=== PATIENT | female | born 1945 | race Caucasian/White ===

== ENCOUNTER 2017-02-03 13:44 | Observation (INO) ==
[2017-02-03] MEDS ORDERED: *HR* HYDROcodone/Acet 5/325 mg TABLET PO ONE (14:22)
--- NOTE | 2017-02-03 14:25 | Emergency Department Note ---
Disposition Clinical Impression: Inability to ambulate due to knee Humeral surgical neck fracture Qualifiers: Encounter type: initial encounter Fracture type: closed Fracture morphology: unspecified fracture morphology Fracture alignment: nondisplaced Laterality: right Qualified Code(s): S42.214A - Unspecified nondisplaced fracture of surgical neck of right humerus, initial encounter for closed fracture Disposition: Admitted As Inpatient Condition: Fair Referrals: Lala Hernandez MD [Primary Care Provider] - Forms: ED Satisfaction Letter Time of Disposition: 15:48 Fall HPI - General Chief Complaint: ED Fall Stated Complaint: R shoulder / Knee pain fall Time Seen by Provider: 02/03/17 14:07 Source: patient Mode of arrival: wheelchair Limitations: no limitations Nursing Notes Reviewed: Yes Vital Signs Reviewed: Yes - History of Present Illness HPI Narrative: 71-year-old female presents for evaluation of right shoulder and right knee pain status post fall just prior to arrival. The patient states that she was in her yard pulling weeds, when she stooped over to pull a small sapling out of the ground. She states "I had to pull really hard and when I did, I slipped backwards and fell". She denies any pain or injuries anywhere else. She complains of pain is well localized to the medial aspect of the right knee. Pain is made worse and with range of motion and weightbearing, in fact, the patient states she is unable to bear weight on her right lower extremity due to the knee pain. She denies hitting her head or any loss of consciousness. She denies any nausea, vomiting, abdominal pain, paresthesias, or weakness of the extremities. She denies any prodromal symptoms to this chest pain, palpitations , lightheadedness, dizziness, or visual disturbances prior to her fall. She describes this incident as a mechanical fall in nature. 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 Denies: headache, neck pain , numbness, weakness, chest pain, shortness of breath, abdominal pain, lightheaded, vertigo, confusion - Related Data Allergies Allergy/AdvReac Type Severity Reaction Status Date / Time Sulfa (Sulfonamide Allergy Hives Verified 02/03/17 14:01 Antibiotics) All systems ED: reviewed and negative except as stated. Constitutional: Denies: fever, chills, weakness, weight change Eyes: Denies: eye pain, eye discharge, vision change ENT ED: Denies: ear pain, throat pain, dental pain, hearing loss, epistaxis, congestion, dysphagia Cardiovascular: Denies: chest pain, palpitations, dyspnea on exertion, edema, syncope Respiratory: Denies: cough, dyspnea, wheezes, hemoptysis, stridor Gastrointestinal: Denies: abdominal pain, nausea, vomiting, diarrhea, constipation, hematemesis, melena, hematochezia Genitourinary: Denies: dysuria, frequency, hematuria, discharge Musculoskeletal: Reports: as per HPI, arthralgia (Right knee, right shoulder pain). Denies: back pain, neck pain, myalgia Integumentary: Denies: rash, abrasion, lesions Neurological: Denies: headache, weakness, numbness, paresthesias, confusion, abnormal gait, vertigo Psychiatric: Denies: anxiety, depression, suicidal thoughts, homicidal thoughts , auditory hallucinations, visual hallucinations Endocrine: Denies: fatigue Hematological/Lymphatic: Denies: easy bleeding, easy bruising Allergic/Immunologic: Denies: facial swelling, urticaria Fall PMH - Past Medical History Medical history: Reports: CHF, diabetes, hyperlipidemia, hypertension, myocardial infarction, renal disease Psychiatric history: Reports: no psych history 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 Absent: nystagmus - ENT ENT exam: mucous membranes moist - Neck Neck exam: Present: normal inspection, full ROM, trachea midline. Absent: tenderness - Chest Chest inspection: Present: normal inspection, symmetric chest wall rise - Respiratory Respiratory exam: Present: normal lung sounds bilaterally. Absent: respiratory distress, wheezes, stridor, accessory muscle use, prolonged expiratory phase - Cardiovascular Cardiovascular exam: Present: regular rate, normal rhythm, normal heart sounds - Abdominal Exam Abdominal exam: Present: soft, Non-Tender, normal bowel sounds. Absent: tenderness, distention, guarding, rebound, rigidity, trauma - Expanded Upper Extremity Exam Shoulder exam: Present: tenderness (Tenderness to palpation diffusely of the right shoulder), deformity (Right shoulder seems to be low-lying compared to the left). Absent: full ROM (Range of motion limited by pain, right shoulder), swelling, abrasion, laceration, ecchymosis, erythema, tenderness over AC joint Arm exam: Present: normal inspection, full ROM Elbow exam: Present: normal inspection, full ROM Forearm/Wrist exam: Present: normal inspection, full ROM Hand exam: Present: normal inspection, full ROM Neuromotor exam: Normal: wrist extension, thumb opposition, fingers 2-5 abduction Neurosensory exam: Normal: radial nerve, ulnar nerve, 2-point discrimination Hand tendon exam: Normal: flexor digitorum profundus (location), extensor tendon (location) Vascular exam: Normal: capillary refill, radial pulse, ulnar pulse - Expanded Lower Extremity Exam Hip/Pelvis exam: Present: normal inspection, full ROM, pelvis stable Upper leg exam: Present: normal inspection, full ROM Knee exam: Present: tenderness (Right knee tender to palpation, most notably over the medial aspect of the right knee), swelling (Moderate degree of swelling noted, medial aspect of right knee), ecchymosis (Slight degree of ecchymosis noted, medial aspect of right knee.), pain with valgus, pain with varus, knee extension intact. Absent: full ROM (Range of motion limited by pain , right knee), abrasion, laceration, deformity, crepitus, dislocation, erythema , effusion, anterior drawer sign, posterior draw sign, laxity with valgus, laxity with varus Lower leg exam: Present: normal inspection, full ROM Ankle exam: Present: normal inspection, full ROM Foot/toe exam: Present: normal inspection, full ROM Neurovascular/Tendon exam: Present: normal capillary refill, normal 2-point discrimination. Absent: pulse deficit, motor deficit, sensory deficit, tendon deficit, extremity cold to touch Gait: not tested/not observed - Back Exam Back exam: Present: normal inspection, full ROM. Absent: tenderness, vertebral tenderness - Neurological Exam Neurological exam: Present: alert, oriented X3 - Psychiatric Psychiatric exam: Present: normal affect, normal mood - Skin Skin exam: Present: warm, dry, intact, normal color Course Course Narrative: 1535: I spoke with Dr. Nye, orthopedist animal nutrition consultant. Dr. Nye recommends application of a sling and having the patient follow-up in the office as an outpatient tomorrow. I have discussed with Dr. Nye the fact the patient is unable to bear weight on her right lower extremity due to the knee pain mentioned previously. Despite having negative radiographic imaging, the patient is still unable to bear weight on the right lower extremity. She would be unable to limit her weightbearing by using a walker at home either. I discussed this with Dr. Nye and we have came to the conclusion to attempt to admit the patient to the hospitalist for further evaluation of her right humeral neck fracture as well as inability to ambulate and apparently. 1540: I have discussed this plan with Dr. Soto. Dr. Soto has had a [id number] evaluation with patient and agrees with this plan. I discussed this plan with patient and she verbalizes agreement and understanding as well. I have spoken with Dr. Figueroa of the hospitalist service, who has accepted the patient for admission to her service. Vital Signs Temperature 98 F 02/03/17 14:01 Pulse Rate 59 02/03/17 14:01 Respiratory Rate 20 02/03/17 14:01 Blood Pressure 114/67 02/03/17 14:01 O2 Sat by Pulse Oximetry 99 02/03/17 14:01 Temperature 98 F 02/03/17 14:01 Pulse Rate 59 02/03/17 14:01 Respiratory Rate 20 02/03/17 14:01 Blood Pressure 114/67 02/03/17 14:01 O2 Sat by Pulse Oximetry 99 02/03/17 14:01 Oxygen Delivery Oxygen Delivery Room Air Fall - Medical Records Medical records reviewed: Yes I reviewed the patient's medical records. - Radiology Data Radiology results reviewed: Yes I reviewed the patient's radiology results. Humerus X-Ray 02/03/17 14:22 IMPRESSION: 1. Acute nondisplaced proximal right humeral fracture likely through the surgical neck. This is otherwise not well-visualized due to underlying osteopenia. 2. Deformities of the right lateral 5th through 7th ribs likely representing age-indeterminate rib fractures. Recommend correlation to any acute focal pain in this region. D/ / 02/03/2017 15:15:29 Sravanthi Reeves MD / jairo Interpreting Provider: Sravanthi Reeves MD Knee X-Ray 02/03/17 14:22 IMPRESSION: Normal alignment with no acute fracture. D/ / 02/03/2017 15:11:48 David David MD / elizabeth Interpreting Provider: David David MD Shoulder X-Ray 02/03/17 14:22 IMPRESSION: 1. Acute nondisplaced proximal right humeral fracture likely through the surgical neck. This is otherwise not well-visualized due to underlying osteopenia. 2. Deformities of the right lateral 5th through 7th ribs likely representing age-indeterminate rib fractures. Recommend correlation to any acute focal pain in this region. D/ / 02/03/2017 15:15:29 Sravanthi Reeves MD / jairo Interpreting Provider: Sravanthi Reeves MD Attestation Statement - Attestation Attestation: I examined this patient and my medical decision-making was reviewed with the BOX TENDER/PA/Advanced Practice Nurse/Resident Physician. I agree with the documented findings, disposition and treatment plan as described except to the extent set forth below. [id number] time provided Patient sustained a fall. Humerus fracture. Appears comfortable on exam. Having difficulty bearing weight and ambulating. There is a fall risk. Will admit.
[2017-02-03 16:55] LABS: Basophils % 0.5 %; Eosinophils # 0.1 K/mcL (0.0-0.6); Eosinophils % 1.2 %; Hematocrit 38.7 % (35.3-44.9); Hemoglobin 12.2 g/dL (11.5-15.4); Immature Granulocytes % 0.7 % (0-4); Lymphocytes # 1.3 K/mcL (0.6-4.6); Lymphocytes % 16.3 %; Mean Corpuscular HGB Conc 31.5 g/dL (31.6-35.5); Mean Corpuscular Hemoglobin 29.5 pg (28.0-33.3); Mean Corpuscular Volume 93.7 fL (83.0-100.0); Mean Platelet Volume 12.4 fL (9.4-12.4); Monocytes # 0.5 K/mcL (0.0-1.3); Neutrophils # 5.8 K/mcL (1.6-8.9); Platelet Count 151 K/mcL (140-400); Red Blood Count 4.13 M/mcL (3.82-4.97); Red Cell Distribution Width 16.5 % (11.5-14.5); Segmented Neutrophils % 75.3 %
[2017-02-03 17:02] LABS: INR 2.7; Prothrombin Time 29.5 Seconds (9.4-12.1)
[2017-02-03 17:04] LABS: Activated Partial Thrombo Time 36.3 Seconds (26.0-36.0)
[2017-02-03 17:07] LABS: Calcium 9.1 mg/dL (8.6-10.8); Potassium 4.5 mEq/L (3.5-4.5)
[2017-02-03] MEDS ORDERED: Acetaminophen 325 MG TABLET PO PRN (18:51)
[2017-02-03] MEDS ORDERED: Ondansetron ODT 4 MG TAB.RAPDIS SL PRN (18:51)
[2017-02-03] MEDS ORDERED: Naloxone 0.4 MG/ML INJ IVP PRN (18:51)
[2017-02-03] MEDS ORDERED: Furosemide 40 MG TABLET PO SCH (19:00)
[2017-02-03] MEDS ORDERED: Lisinopril 20 MG TABLET PO SCH (21:00)
--- NOTE | 2017-02-03 21:11 | Internal Med History&Physical ---
<Nery Baltazar M - Last Filed: 02/03/17 23:56> Date of Encounter: 02/03/17 Time of Encounter: 21:00 Assessment and Plan (1) Inability to ambulate due to knee Current visit: Yes Status: Acute Patient is s/p fall and reports hearing/feeling a "pop" in her right knee. Knee xray shows normal alignment with no acute fracture. Medial aspect of right knee is tender to palpation and swollen, concern for possible ligament tear. CT without contrast of right knee ordered, which showed hemarthrosis. Consult to orthopedic surgery. (2) Humeral surgical neck fracture Current visit: Yes Status: Acute Patient s/p mechanical fall. Right shoulder xray showed acute non-displaced right humeral fracture likely through the surgical neck. Sling and elevation. Orthopedic surgery consulted. Qualifiers: Encounter type: initial encounter Fracture type: closed Fracture morphology: unspecified fracture morphology Fracture alignment: nondisplaced Laterality: right Qualified Code(s): S42.214A - Unspecified nondisplaced fracture of surgical neck of right humerus, initial encounter for closed fracture (3) Anticoagulated on Coumadin Current visit: Yes Status: Acute Patient on coumadin for history of afib, INR therapeutic at 2.7. Will hold pending results of CT of knee and ortho consult in case of possible surgery. (4) Acute kidney injury superimposed on chronic kidney disease Current visit: Yes Status: Acute Patient reports history of kidney problems, but has not seen a surgical services manager in several years and has no recent labs for base line comparison. Creatinine today is 1.85, unclear if this is consistent with her CKD or acute on chronic. Will hold lisinopril and lasix. Check chemistry daily. (5) Type 2 diabetes mellitus Current visit: Yes Status: Acute Patient reports diabetes is diet controlled. Blood sugar with labs today was 88. QID accuchecks not warranted. Will check glucose with morning chemistry and if elevated, can initiate QID accuchecks. Qualifiers: Diabetes mellitus complication status: without complication Diabetes mellitus snf insulin use: without snf use Qualified Code(s): E11.9 - Type 2 diabetes mellitus without complications (6) DVT prophylaxis Current visit: Yes Status: Acute Patient on coumadin for history of afib and INR is therapeutic. Holding coumadin in case of possible surgery, will re-start if surgery not indicated. Internal Medicine - H&P: HPI Chief complaint: fall, right knee pain, right shoulder pain Admitted From: Emergency Dept Plans for Post Hospital Care: Home History of present illness: Ms. Rodríguez is a 71 year old female with hypertension, hyperlipidemia, coronary artery disease, kidney disease, atrial fibrillation on Coumadin, CHF, pacemaker AICD, presented to the emergency department today after suffering a fall. Patient reports that she was in her yard pulling weeds, when she pulled too hard on one and lost her balance. She reports she heard/felt a "pop" in her right knee and landed on her right side. She has had pain in her right arm and right knee, and is unable to bear weight. Pain is worse with movement and palpation and improved with pain medicine given in ED. She denies hitting her head, having any preceding lightheadedness or dizziness. She denies any chest pain, palpitations, shortness of breath, recent fevers, chills, dysuria. Evaluation in the ED included Xray of the right shoulder which showed an acute non-displaced right humeral fracture. Xray of the knee showed normal alignment with no acute fracture. Labs revealed therapeutic INR of 2.7. Creatinine elevated at 1.85, patient reports history of CKD, but has not seen a surgical services manager recently and with unknown recent baseline. On exam, patient alert and oriented, in no acute distress. Heart has regular rate and rhythm, lungs clear bilaterally to auscultation. Right arm tender to palpation over humeral head. Right knee with medial swelling, tenderness to medial aspect. Past Med Surg Social Fam HX - Past Medical History Medical history: atrial fibrillation, CHF, diabetes (diet controlled), GERD, hyperlipidemia, hypertension, myocardial infarction, renal disease Psychiatric history: no psych history - Past Surgical History Surgical History: cholecystectomy, pacemaker/AICD - Social History Smoking Status: Former smoker Smokeless Tobacco Status: No Alcohol use: none Drug use: none - Family History Mother Living Status: Age at : 53 Hx Family Endocrine Disorder: Yes (diabetes) Father Living Status: Age at : 58 Cause of : ME Hx Family Cardiac Disorders: Yes Internal Medicine - H&P: Meds Acetaminophen [Tylenol] 500 mg PO Q6H PRN 02/03/17 [History] Allopurinol [Zyloprim 100 MG] 100 mg PO BID 02/03/17 [History] Amiodarone [Cordarone] 400 mg PO QAM 02/03/17 [History] Biotin 1 mg PO DAILY 02/03/17 [History] Calcitriol [Rocaltrol] 0.25 mcg PO DAILY 02/03/17 [History] Cholecalciferol (D-3) [Vitamin D] 3,000 unit PO DAILY 02/03/17 [History] Cyanocobalamin (Vitamin B-12) [Vitamin B-12] 250 mcg PO DAILY 02/03/17 [History] Enalapril Maleate [Vasotec] 20 mg PO BID 02/03/17 [History] Furosemide [Lasix] 40 mg PO Q48H 02/03/17 [History] Metoprolol [Lopressor] 25 mg PO BID 02/03/17 [History] Omeprazole [PriLOSEC] 20 mg PO BID 02/03/17 [History] Oxycodone HCl/Acetaminophen [Percocet 5-325 mg Tablet] 1 each PO BID PRN [History] Potassium Chloride [Klor-Con 10] 10 meq PO DAILY 02/03/17 [History] Warfarin [Coumadin] 1 mg PO Q48H 02/03/17 [History] Warfarin [Coumadin] 2 mg PO Q48H 02/03/17 [History] Allergies Sulfa (Sulfonamide Antibiotics) Allergy (Verified 02/03/17 14:01) Hives All Systems PM: A 10-system review of systems was performed and is negative for pertinent findings except as documented above in the HPI. - Constitutional Constitutional: no chills, no fever(s), no night sweats - EENT Eyes: no change in vision, no discharge, no pain, no photophobia Ears: no ear discharge, no ear pain, no tinnitus Nose, mouth and throat: no dysphagia, no nasal discharge, no neck pain, no sore throat - Cardiovascular Cardiovascular ROS IM: no chest pain, no diaphoresis, no dyspnea, no lightheadedness, no palpitations, no syncope - Respiratory Respiratory: no cough, no dyspnea, no wheezing, no excessive phlegm production - Gastrointestinal Gastrointestinal: no abdominal pain, no diarrhea, no hematemesis, no hematochezia, no melena, no nausea, no vomiting - Genitourinary Genitourinary: no change in urinary stream, no dysuria, no flank pain, no hematuria - Musculoskeletal Musculoskeletal ROS IM: as per HPI, no numbness, no tingling - Integumentary Integumentary IM: no rash, no unusual bruising - Neurological Neurological ROS: no confusion, no convulsions, no focal weakness, no numbness, no tingling, no tremor(s) - Hematologic/Lymphatic Hematologic/Lymphatic: no easy bruising - Constitutional Vitals: Temp Pulse Resp BP Pulse Ox 98.2 F 60 18 165/77 99 02/03/17 18:37 02/03/17 18:37 02/03/17 18:37 02/03/17 18:37 02/03/17 18:37 General appearance: Present: A&O X 3, pleasant, no acute distress - Head Head exam: Present: atraumatic, normocephalic - Eye Eye exam: Present: PERRL, conjuntiva pink, sclera anicteric Pupils: Present: PERRL - Neck Neck exam general surgery: Present: supple, trachea midline. Absent: lymphadenopathy - Respiratory Respiratory exam: Present: CTAB. Absent: accessory muscle use, rales, rhonchi, wheezes - Cardiovascular Cardiovascular exam: Present: RRR, +S1, +S2. Absent: diastolic murmur, gallop, rubs, systolic murmur - GI/Abdominal GI/Abdominal exam: Present: normal bowel sounds, soft, no peritoneal signs. Absent: distended, tenderness - Extremities Exam Extremities exam: Present: warm, radial pulses palpable and symetrical. Absent : calf tenderness, cyanotic, pedal edema - Expanded Upper Extremities Exam Upper Arm exam: Present: swelling (right), tenderness (right) - Expanded Lower Extremities Exam Knee exam: Present: swelling (medial aspect of right knee), tenderness (medial aspect of right knee) - Neurological Exam Neurological exam: Present: CN II-XII intact, oriented X3, no focal deficits. Absent: facial droop, speech deficit - Skin Skin exam: Present: dry, intact Internal Med - H&P Results - Labs CBC & Chem 7: 02/03/17 16:46 02/03/17 16:46 Labs: All Lab Results (24 Hours) 02/03/17 02/03/17 02/03/17 Range/Units 16:46 16:46 16:46 WBC 7.7 (4.3-11.1) K/mcL RBC 4.13 (3.82-4.97) M/mcL Hgb 12.2 (11.5-15.4) g/dL Hct 38.7 (35.3-44.9) % MCV 93.7 (83.0-100.0) fL MCH 29.5 (28.0-33.3) pg MCHC 31.5 L (31.6-35.5) g/dL RDW 16.5 H (11.5-14.5) % Plt Count 151 (140-400) K/mcL MPV 12.4 (9.4-12.4) fL Immature Gran % 0.7 (0-4) % Seg Neutrophils % 75.3 % Lymphocytes % 16.3 % Monocytes % 6.0 % Eosinophils % 1.2 % Basophils % 0.5 % Neutrophils # 5.8 (1.6-8.9) K/mcL Lymphocytes # 1.3 (0.6-4.6) K/mcL Monocytes # 0.5 (0.0-1.3) K/mcL Eosinophils # 0.1 (0.0-0.6) K/mcL Basophils # 0.0 (0.0-0.2) K/mcL PT 29.5 H (9.4-12.1) Seconds INR 2.7 APTT 36.3 H (26.0-36.0) Seconds Sodium 139 (136-145) mEq/L Potassium 4.5 (3.5-4.5) mEq/L Chloride 109 (98-109) mEq/L Carbon Dioxide 22 (19-29) mEq/L BUN 36 H (7-20) mg/dL Creatinine 1.85 H (0.57-1.11) mg/dL Est GFR ( Amer) 33 L (> 60) Est GFR (Non-Af Amer) 27 L (> 60) BUN/Creatinine Ratio 19 (6-26) Glucose 88 (70-99) mg/dL Calculated Osmolality 296 (280-300) Calcium 9.1 (8.6-10.8) mg/dL - Diagnostic Studies Other Images Additional comments: Humerus X-Ray 02/03/17 14:22 IMPRESSION: 1. Acute nondisplaced proximal right humeral fracture likely through the surgical neck. This is otherwise not well-visualized due to underlying osteopenia. 2. Deformities of the right lateral 5th through 7th ribs likely representing age-indeterminate rib fractures. Recommend correlation to any acute focal pain in this region. D/ / 02/03/2017 15:15:29 Sravanthi Reeves MD / earnold Interpreting Provider: Sravanthi Reeves MD Knee X-Ray 02/03/17 14:22 IMPRESSION: Normal alignment with no acute fracture. D/ / 02/03/2017 15:11:48 David David MD / bcarter Interpreting Provider: David David MD Shoulder X-Ray 02/03/17 14:22 IMPRESSION: 1. Acute nondisplaced proximal right humeral fracture likely through the surgical neck. This is otherwise not well-visualized due to underlying osteopenia. 2. Deformities of the right lateral 5th through 7th ribs likely representing age-indeterminate rib fractures. Recommend correlation to any acute focal pain in this region. D/ / 02/03/2017 15:15:29 Sravanthi Reeves MD / earnoanna Interpreting Provider: Sravanthi Reeves MD <Alpesh Robison - Last Filed: 02/04/17 00:22> Date of Encounter: 02/04/17 - EENT Eyes: no blurry vision, no change in vision Ears: no tinnitus Nose, mouth and throat: no nasal discharge, no sinus pressure, no sore throat - Cardiovascular Cardiovascular ROS IM: no chest pain, no dyspnea, no dyspnea on exertion, no syncope - Respiratory Respiratory: no cough, no wheezing, no chest congestion - Gastrointestinal Gastrointestinal: no diarrhea, no nausea, no vomiting - Musculoskeletal Musculoskeletal ROS IM: arthralgias - Neurological Neurological ROS: no dizziness - Psychiatric Psychiatric: no anxiety, no depression - Endocrine Endocrine IM: no cold intolerance, no heat intolerance - Allergic/Immunologic Allergic/Immunologic: no wheezing, no GI upset with certain foods - Constitutional Vitals: Temp Pulse Resp BP Pulse Ox 97.9 F 60 16 155/79 97 02/03/17 23:15 02/03/17 23:15 02/03/17 23:15 02/03/17 23:15 02/03/17 23:15 General appearance: Present: A&O X 3, pleasant, no acute distress - Head Head exam: Present: atraumatic, normal inspection - Eye Eye exam: Present: EOMI, PERRL. Absent: scleral icterus - ENT ENT exam: Present: mucous membranes moist, normal exam - Neck Neck exam general surgery: Present: full ROM, supple. Absent: tenderness - Respiratory Respiratory exam: Present: CTAB. Absent: rales, wheezes - Cardiovascular Cardiovascular exam: Present: RRR, +S1, +S2 - GI/Abdominal GI/Abdominal exam: Present: soft, no peritoneal signs. Absent: tenderness - Extremities Exam Additional comments: right arm in sling; tender/swollen (slightly) right knee - Neurological Exam Neurological exam: Present: alert, CN II-XII intact, oriented X3, no focal deficits - Psychiatric Psychiatric exam: Present: normal affect, normal mood Internal Med - H&P Results - Labs CBC & Chem 7: 02/03/17 16:46 02/03/17 16:46 Labs: Short CBC 02/03/17 Range/Units 16:46 WBC 7.7 (4.3-11.1) K/mcL Hgb 12.2 (11.5-15.4) g/dL Hct 38.7 (35.3-44.9) % Plt Count 151 (140-400) K/mcL Neutrophils # 5.8 (1.6-8.9) K/mcL BMP 02/03/17 16:46 Sodium 139 Potassium 4.5 Chloride 109 Carbon Dioxide 22 BUN 36 H Creatinine 1.85 H Glucose 88 Calcium 9.1 - Impressions ITS Impressions Knee CT 02/03/17 20:53 IMPRESSION: Acute traumatic mildly depressed intra-articular fracture involving medial femoral condyle. Associated large lipohemarthrosis. Minimal degenerative changes to the medial and patellofemoral compartments. Diffuse bone demineralization. Mild subcutaneous edema predominantly laterally. The findings were sent to the Radiology Results Communication Center at 10:54 pm on 02/03/2017 to be communicated to a licensed caregiver. D/ /03/2017 22:58:34 Sung Perera MD / [email or web address] Interpreting Provider: Sung Perera MD - Diagnostic Studies Other Images Status: image reviewed by me (humeral fracture noted) - Attending Attestation I discussed the patient [place], PMH, ROS, lab data, and exam findings with Nery Baltazar CNP. I then saw and examined patient independently as well. Patient reiterated to me that she fell as she was pulling weeds. She denies any syncopal symptoms or history of syncope. She sustained injury to her shoulder and knee. Imaging in ER confirmed humeral neck fracture and knee xray was negative. After my discussion with Nery, she and I agreed we needed to further image her knee given the degree of pain she was having. She is unable to undergo MRI due to pacemaker, so we proceeded with CT imaging (no contrast due to ADA/CKD). CT confirmed acute fracture of the medial femoral condyle as well as hemarthrosis. We are holding her Coumadin for now and will await further orthopedic guidance as noted by Nery. Other than my comments and exam findings noted above, I agree with Nery's assessment and plan.
[2017-02-03] MEDS: *HR* HYDROcodone/Acet 5/325 mg TABLET PO PRN (21:40)
[2017-02-04] MEDS: *HR* HYDROcodone/Acet 5/325 mg TABLET PO PRN ×2 (03:00→08:39)
[2017-02-04 04:45] LABS: Basophils % 0.4 %; Eosinophils % 0.4 %; Hematocrit 33.6 % (35.3-44.9); Hemoglobin 10.8 g/dL (11.5-15.4); Immature Granulocytes % 0.3 % (0-4); Lymphocytes % 13.4 %; Mean Corpuscular HGB Conc 32.1 g/dL (31.6-35.5); Mean Corpuscular Hemoglobin 29.8 pg (28.0-33.3); Mean Corpuscular Volume 92.6 fL (83.0-100.0); Mean Platelet Volume 11.9 fL (9.4-12.4); Monocytes # 0.5 K/mcL (0.0-1.3); Monocytes % 7.4 %; Neutrophils # 5.6 K/mcL (1.6-8.9); Platelet Count 143 K/mcL (140-400); Red Blood Count 3.63 M/mcL (3.82-4.97); Red Cell Distribution Width 16.1 % (11.5-14.5); Segmented Neutrophils % 78.1 %
[2017-02-04 05:04] LABS: Calcium 8.4 mg/dL (8.6-10.8); Potassium 4.4 mEq/L (3.5-4.5)
[2017-02-04] MEDS: Cyanocobalamin (B-12) 1,000 MCG TABLET PO SCH (08:38)
[2017-02-04] MEDS: Cholecalciferol (D-3) 1,000 UNIT TABLET PO SCH (08:38)
[2017-02-04] MEDS: Biotin [Biotin] 1 MG PO SCH (08:39)
[2017-02-04] MEDS: *HR* Amiodarone 200 MG TABLET PO SCH (08:39)
--- NOTE | 2017-02-04 11:15 | Internal Med Progress Note ---
Date of Encounter: 02/04/17 Time of Encounter: 09:45 - Assessment and plan (1) Humeral surgical neck fracture Current Visit: Yes Status: Acute Assessment and plan: imaging consistent with acute fracture to right proximal humerus through the surgical neck. Ortho is onboard- awaiting recommendations. Holding Coumadin. Distal arm neurovascularly intact and she is able to use her hand without limitations. 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 ITS Impressions Humerus X-Ray 02/03/17 14:22 IMPRESSION: 1. Acute nondisplaced proximal right humeral fracture likely through the surgical neck. This is otherwise not well-visualized due to underlying osteopenia. 2. Deformities of the right lateral 5th through 7th ribs likely representing age-indeterminate rib fractures. Recommend correlation to any acute focal pain in this region. D/ / 02/03/2017 15:15:29 Sravanthi Reeves MD / jairo Interpreting Provider: Sravanthi Reeves MD Shoulder X-Ray 02/03/17 14:22 IMPRESSION: 1. Acute nondisplaced proximal right humeral fracture likely through the surgical neck. This is otherwise not well-visualized due to underlying osteopenia. 2. Deformities of the right lateral 5th through 7th ribs likely representing age-indeterminate rib fractures. Recommend correlation to any acute focal pain in this region. D/ / 02/03/2017 15:15:29 Sravanthi Reeves MD / jairo Interpreting Provider: Sravanthi Reeves MD Qualifiers: Encounter type: initial encounter Fracture type: closed Fracture morphology: unspecified fracture morphology Fracture alignment: nondisplaced Laterality: right Qualified Code(s): S42.214A - Unspecified nondisplaced fracture of surgical neck of right humerus, initial encounter for closed fracture (2) Hemarthrosis involving knee joint Current Visit: Yes Status: Acute Assessment and plan: Imaging consistent with acute fracture to medial femoral condyle. Ortho onboard - awaiting recommendations. Left lower leg neurovascularly intact. ITS Impressions Knee X-Ray 02/03/17 14:22 IMPRESSION: Normal alignment with no acute fracture. D/ / 02/03/2017 15:11:48 David David MD / elizabeth Interpreting Provider: David David MD Knee CT 02/03/17 20:53 IMPRESSION: Acute traumatic mildly depressed intra-articular fracture involving medial femoral condyle. Associated large lipohemarthrosis. Minimal degenerative changes to the medial and patellofemoral compartments. Diffuse bone demineralization. Mild subcutaneous edema predominantly laterally. The findings were sent to the Radiology Results Communication Center at 10:54 pm on 02/03/2017 to be communicated to a licensed caregiver. D/ : / 02/03/2017 22:58:34 Sung Perera MD / [facility] Interpreting Provider: Sung Perera MD Qualifiers: Laterality: left Qualified Code(s): M25.062 - Hemarthrosis, left knee (3) Rib fractures Current Visit: Yes Status: Suspected Assessment and plan: imaging revealing possible fractures to right lateral ribs 5 through 7. Patient denies chest wall pain but currently has distracting injuries- will continue to monitor. She denies shortness of breath. ITS Impressions Humerus X-Ray 02/03/17 14:22/Shoulder X-Ray 02/03/17 14:22 IMPRESSION: 1. Acute nondisplaced proximal right humeral fracture likely through the surgical neck. This is otherwise not well-visualized due to underlying osteopenia. 2. Deformities of the right lateral 5th through 7th ribs likely representing age-indeterminate rib fractures. Recommend correlation to any acute focal pain in this region. D/ / 02/03/2017 15:15:29 Sravanthi Reeves MD / [facility] Interpreting Provider: Sravanthi Reeves MD Qualifiers: Encounter type: initial encounter Rib fracture type: multiple ribs Fracture type: closed Laterality: right Qualified Code(s): S22.41XA - Multiple fractures of ribs, right side, initial encounter for closed fracture (4) Inability to ambulate due to knee Current Visit: Yes Status: Acute Assessment and plan: OT and PT consultations to be placed after Ortho recommendations are rendered. (5) Combined systolic and diastolic heart failure Current Visit: Yes Status: Chronic Assessment and plan: No acute exacerbation. Patient's most recent echocardiogram was from 2013 which revealed an ejection fraction of 10-15% at that time. She is also on furosemide at home. Suspect combined systolic and diastolic heart failure without acute exacerbation. Qualifiers: Heart failure chronicity: chronic Qualified Code(s): I50.42 - Chronic combined systolic (congestive) and diastolic (congestive) heart failure (6) Anticoagulated on Coumadin Current Visit: Yes Status: Chronic Assessment and plan: holding; appreciate Ortho recommendations (7) Acute kidney injury superimposed on chronic kidney disease Current Visit: Yes Status: Acute Assessment and plan: Patient appears as if she may have chronic kidney disease either stage III or possibly even stage IV however I do not have prior lab results to determine chronicity. Renal function improved slightly overnight, we will continue to trend in however follow-up outpatient. (8) Type 2 diabetes mellitus Current Visit: Yes Status: Chronic Assessment and plan: Appears well controlled; will monitor Qualifiers: Diabetes mellitus complication status: without complication Diabetes mellitus jail insulin use: without longitudinal float operator use Qualified Code(s): E11.9 - Type 2 diabetes mellitus without complications (9) DVT prophylaxis Current Visit: Yes Status: Acute Assessment and plan: was therapeutic on coumadin yesterday- holding coumadin 2/2 ortho injuries. cannot tolerate IPC's 2/2 knee injury - Subjective Interval history: Patient seen and examined. On examination, patient sitting upright in bed watching television. She states that her pain is not currently controlled. She is complaining of left knee pain and right upper arm pain. She states she is eating well. - Constitutional Vitals: Temp Pulse Resp BP Pulse Ox 98.2 F 60 16 122/55 95 02/04/17 06:53 02/04/17 06:53 02/04/17 06:53 02/04/17 06:53 02/04/17 06:53 General appearance: Present: mild distress (2/2 pain), A&O X 3, pleasant, answers questions appropriately - Head Head exam: Present: atraumatic, normocephalic - Eye Eye exam: Present: PERRL, conjuntiva pink, sclera anicteric Pupils: Present: PERRL - Neck Neck exam general surgery: Present: supple, trachea midline. Absent: lymphadenopathy - Respiratory Respiratory exam: Present: CTAB. Absent: accessory muscle use, rales, respiratory distress, rhonchi, wheezes - Cardiovascular Cardiovascular exam: Present: RRR, +S1, +S2. Absent: diastolic murmur, gallop, rubs, systolic murmur - GI/Abdominal GI/Abdominal exam: Present: normal bowel sounds, soft, no peritoneal signs. Absent: distended, tenderness - Extremities Exam Extremities exam: Present: warm, radial pulses palpable and symetrical. Absent : calf tenderness, cyanotic, pedal edema - Expanded Upper Extremities Exam Shoulder exam: Present: swelling, tenderness Upper Arm exam: Present: swelling, tenderness Vascular exam: Present: normal capillary refill. Absent: vascular compromise - Expanded Lower Extremities Exam Knee exam: Present: erythema, swelling, tenderness Neuro vascular tendon exam: Present: no vascular compromise Gait: Present: not tested/not observed - Neurological Exam Neurological exam: Present: alert, CN II-XII intact, oriented X3, no focal deficits, strengths equal and symetr throughout. Absent: pronater drift, facial droop, speech deficit - Skin Skin exam: Present: dry, intact, pallor, warm Internal Medicine: Result - Labs CBC & Chem 7: 02/04/17 04:11 02/04/17 04:11 Labs: Short CBC 02/03/17 02/04/17 Range/Units 16:46 04:11 WBC 7.7 7.2 (4.3-11.1) K/mcL Hgb 12.2 10.8 L (11.5-15.4) g/dL Hct 38.7 33.6 L (35.3-44.9) % Plt Count 151 143 (140-400) K/mcL Neutrophils # 5.8 5.6 (1.6-8.9) K/mcL BMP 02/03/17 02/04/17 16:46 04:11 Sodium 139 139 Potassium 4.5 4.4 Chloride 109 109 Carbon Dioxide 22 23 BUN 36 H 35 H Creatinine 1.85 H 1.63 H Glucose 88 125 H Calcium 9.1 8.4 L - ABG Interpretation ABG results: PT/INR, D-dimer PT 29.5 Seconds (9.4-12.1) H 02/03/17 16:46 - Impressions Impressions Knee CT 02/03/17 20:53 IMPRESSION: Acute traumatic mildly depressed intra-articular fracture involving medial femoral condyle. Associated large lipohemarthrosis. Minimal degenerative changes to the medial and patellofemoral compartments. Diffuse bone demineralization. Mild subcutaneous edema predominantly laterally. The findings were sent to the Radiology Results Communication Center at 10:54 pm on 02/03/2017 to be communicated to a licensed caregiver. D/ / 02/03/2017 22:58:34 Sung Perera MD / eriberto Interpreting Provider: Sung Perera MD Consult Discharge Plan - Plan Referrals: Lala Hernandez MD [Primary Care Provider] -
[2017-02-04] MEDS: *HR* Morphine 2 MG/ML SYRINGE IVP PRN ×2 (15:21→19:52)
[2017-02-04] MEDS: *HR* HYDROcodone/Acet 7.5/325 mg TABLET PO PRN ×2 (16:37→22:54)
--- NOTE | 2017-02-04 17:20 | Orthopedic Consult Note ---
Date of Encounter: 02/04/17 Time of Encounter: 17:00 Assessment and Plan (1) Hemarthrosis involving knee joint Current Visit: Yes Status: Acute Discussed case with Dr. Nye and Hospitalist. Discussed case with patient and family. Shoulder is non-operative at this time. Continue in brace and work on wrist/hand ROM. Right knee non-operative at this time. Treat fracture with hinged knee brace and WBAT. Ice and elevation as tolerated. Recommend pain control. Recommend consultation to OT/PT for patient. Discussed patient possibly staying tonight secondary to her anticoagulation status and a hemarthrosis. Follow up with orthopedic provider in 1 week. Also, regarding her bone demineralization and multiple fractures following a fall - strongly recommended to patient and family that she follow up with her PCP to discuss Osteoporosis work up. Patient expresses understanding. Thank you for this consultation. Qualifiers: Laterality: left Qualified Code(s): M25.062 - Hemarthrosis, left knee (2) Humeral surgical neck fracture Current Visit: Yes Status: Acute Qualifiers: Encounter type: initial encounter Fracture type: closed Fracture morphology: unspecified fracture morphology Fracture alignment: nondisplaced Laterality: right Qualified Code(s): S42.214A - Unspecified nondisplaced fracture of surgical neck of right humerus, initial encounter for closed fracture History of Present Illness Chief complaint: right humerus fracture, right knee hemarthrosis HPI: Ms. Rodríguez is a pleasant 71 year old female presents to the hospital with shoulder pain and knee pain. She relates that she was pulling up a sapling tree yesterday and fell onto her right side. She states the pain was bad causing her to come to the hospital for evaluation. Patient relates a complex cardiac history with correction use of Warfarin. Admits difficulty ambulating, right shoulder pain at rest and with motion, and right knee pain. Denies numbness, paresthesia, nausea, headache, shortness of breath. On exam patient resting comfortably in bed in supine position. Two family members present at bedside. She is alert and oriented x 3, conversive and cooperative. Head normocephalic, atraumatic. Right shoulder is tender to palpation - right upper extremity in simple blue sling - otherwise unremarkable. Motion of right elbow and wrist and hand intact. No erythema, ecchymosis, induration, or loss of skin integrity noted. Right knee is edematous , warm and tender to palpation, painful with motion. Skin is tense, but no loss of integrity, warmth, or ecchymosis noted. Patient is neurovascularly intact with regard to all extremities. Imaging reviewed. XR/XR humerus RT IMPRESSION: 1. Acute nondisplaced proximal right humeral fracture likely through the surgical neck. This is otherwise not well-visualized due to underlying osteopenia. 2. Deformities of the right lateral 5th through 7th ribs likely representing age-indeterminate rib fractures. Recommend correlation to any acute focal pain in this region. CT/CT knee RT wo con IMPRESSION: Acute traumatic mildly depressed intra-articular fracture involving medial femoral condyle. Associated large lipohemarthrosis. Minimal degenerative changes to the medial and patellofemoral compartments. Diffuse bone demineralization. Mild subcutaneous edema predominantly laterally. Discussed case with Dr. Nye and Hospitalist. Discussed case with patient and family. Shoulder is non-operative at this time. Continue in brace and work on wrist/hand ROM. Right knee non-operative at this time. Treat fracture with hinged knee brace and WBAT. Ice and elevation as tolerated. Recommend pain control. Recommend consultation to OT/PT for patient. Discussed patient possibly staying tonight secondary to her anticoagulation status and a hemarthrosis. Follow up with orthopedic provider in 1 week. Also, regarding her bone demineralization and multiple fractures following a fall - strongly recommended to patient and family that she follow up with her PCP to discuss Osteoporosis work up. Patient expresses understanding. Thank you for this consultation. Past Med Surg Social Fam HX - Past Medical History Medical history: atrial fibrillation, CHF, diabetes (diet controlled), GERD, hyperlipidemia, hypertension, myocardial infarction, renal disease Psychiatric history: no psych history - Past Surgical History Surgical History: cholecystectomy, pacemaker/AICD - Social History Smoking Status: Former smoker Smokeless Tobacco Status: No Alcohol use: none Drug use: none - Family History Mother Living Status: Age at : 53 Hx Family Endocrine Disorder: Yes (diabetes) Father Living Status: Age at : 58 Cause of : [place] Hx Family Cardiac Disorders: Yes Medications and Allergies Acetaminophen [Tylenol] 500 mg PO Q6H PRN 02/03/17 [History] Allopurinol [Zyloprim 100 MG] 100 mg PO BID 02/03/17 [History] Amiodarone [Cordarone] 400 mg PO QAM 02/03/17 [History] Biotin 1 mg PO DAILY 02/03/17 [History] Calcitriol [Rocaltrol] 0.25 mcg PO DAILY 02/03/17 [History] Cholecalciferol (D-3) [Vitamin D] 3,000 unit PO DAILY 02/03/17 [History] Cyanocobalamin (Vitamin B-12) [Vitamin B-12] 250 mcg PO DAILY 02/03/17 [History] Enalapril Maleate [Vasotec] 20 mg PO BID 02/03/17 [History] Furosemide [Lasix] 40 mg PO Q48H 02/03/17 [History] Metoprolol [Lopressor] 25 mg PO BID 02/03/17 [History] Omeprazole [PriLOSEC] 20 mg PO BID 02/03/17 [History] Oxycodone HCl/Acetaminophen [Percocet 5-325 mg Tablet] 1 each PO BID PRN [History] Potassium Chloride [Klor-Con 10] 10 meq PO DAILY 02/03/17 [History] Warfarin [Coumadin] 1 mg PO Q48H 02/03/17 [History] Warfarin [Coumadin] 2 mg PO Q48H 02/03/17 [History] Allergies Sulfa (Sulfonamide Antibiotics) Allergy (Verified 02/03/17 14:01) Hives All Systems Reviewed: A 10-system review of systems was performed and is negative for pertinent findings except as documented above in the HPI. Physical Exam - Constitutional Vitals: Temp Pulse Resp BP Pulse Ox 98.2 F 60 16 164/77 98 02/04/17 15:34 02/04/17 15:34 02/04/17 15:34 02/04/17 15:34 02/04/17 15:34 Results - Labs Result Diagrams: 02/04/17 04:11 02/04/17 04:11 Labs: Abnormal lab results RBC 3.63 M/mcL (3.82-4.97) L 02/04/17 04:11 Hgb 10.8 g/dL (11.5-15.4) L 02/04/17 04:11 Hct 33.6 % (35.3-44.9) L 02/04/17 04:11 RDW 16.1 % (11.5-14.5) H 02/04/17 04:11 PT 29.5 Seconds (9.4-12.1) H 02/03/17 16:46 APTT 36.3 Seconds (26.0-36.0) H 02/03/17 16:46 BUN 35 mg/dL (7-20) H 02/04/17 04:11 Creatinine 1.63 mg/dL (0.57-1.11) H 02/04/17 04:11 Est GFR ( Amer) 38 (> 60) L 02/04/17 04:11 Est GFR (Non-Af Amer) 31 (> 60) L 02/04/17 04:11 Glucose 125 mg/dL (70-99) H 02/04/17 04:11 POC Glucose 112 (58-89) H 02/04/17 16:15 Calcium 8.4 mg/dL (8.6-10.8) L 02/04/17 04:11 H & H 02/04/17 Range/Units 04:11 Hgb 10.8 L (11.5-15.4) g/dL Hct 33.6 L (35.3-44.9) % All other labs normal. Consult Discharge Plan - Plan Referrals: Lala Hernandez MD [Primary Care Provider] -
[2017-02-04] MEDS ORDERED: *HR* Warfarin 1 MG TABLET PO SCH (18:00)
[2017-02-05] MEDS: *HR* HYDROcodone/Acet 7.5/325 mg TABLET PO PRN ×3 (03:30→21:07)
[2017-02-05 07:06] LABS: Basophils % 0.6 %; Eosinophils # 0.1 K/mcL (0.0-0.6); Eosinophils % 1.2 %; Hematocrit 34.3 % (35.3-44.9); Hemoglobin 11.1 g/dL (11.5-15.4); Immature Granulocytes % 0.7 % (0-4); Lymphocytes # 1.3 K/mcL (0.6-4.6); Lymphocytes % 18.6 %; Mean Corpuscular HGB Conc 32.4 g/dL (31.6-35.5); Mean Corpuscular Hemoglobin 30.4 pg (28.0-33.3); Mean Platelet Volume 12.6 fL (9.4-12.4); Monocytes # 0.6 K/mcL (0.0-1.3); Monocytes % 9.2 %; Neutrophils # 4.7 K/mcL (1.6-8.9); Platelet Count 139 K/mcL (140-400); Red Blood Count 3.65 M/mcL (3.82-4.97); Red Cell Distribution Width 16.3 % (11.5-14.5); Segmented Neutrophils % 69.7 %
[2017-02-05 07:19] LABS: Calcium 8.6 mg/dL (8.6-10.8); Potassium 4.2 mEq/L (3.5-4.5)
[2017-02-05 07:26] LABS: INR 1.9; Prothrombin Time 21.3 Seconds (9.4-12.1)
[2017-02-05] MEDS: Cholecalciferol (D-3) 1,000 UNIT TABLET PO SCH (08:29)
[2017-02-05] MEDS: *HR* Amiodarone 200 MG TABLET PO SCH (08:30)
[2017-02-05] MEDS: Cyanocobalamin (B-12) 1,000 MCG TABLET PO SCH (08:32)
[2017-02-05] MEDS ORDERED: Furosemide 40 MG TABLET PO SCH (09:00)
[2017-02-05] MEDS: Biotin [Biotin] 1 MG PO SCH (11:37)
--- NOTE | 2017-02-05 13:55 | Internal Med Progress Note ---
Date of Encounter: 02/05/17 Time of Encounter: 09:30 - Assessment and plan (1) Humeral surgical neck fracture Current Visit: Yes Status: Acute Assessment and plan: imaging consistent with acute fracture to right proximal humerus through the surgical neck. Ortho is onboard- non surgical. Recommendation for sling and physical therapy. Holding Coumadin. Distal arm neurovascularly intact and she is able to use her hand without limitations. Post Graduate Intern strong; radial pulse strong. ITS Impressions Humerus X-Ray 02/03/17 14:22 IMPRESSION: 1. Acute nondisplaced proximal right humeral fracture likely through the surgical neck. This is otherwise not well-visualized due to underlying osteopenia. 2. Deformities of the right lateral 5th through 7th ribs likely representing age-indeterminate rib fractures. Recommend correlation to any acute focal pain in this region. D/ / 02/03/2017 15:15:29 Sravanthi Reeves MD / [facility] Interpreting Provider: Sravanthi Reeves MD Shoulder X-Ray 02/03/17 14:22 IMPRESSION: 1. Acute nondisplaced proximal right humeral fracture likely through the surgical neck. This is otherwise not well-visualized due to underlying osteopenia. 2. Deformities of the right lateral 5th through 7th ribs likely representing age-indeterminate rib fractures. Recommend correlation to any acute focal pain in this region. D/ / 02/03/2017 15:15:29 Sravanthi eReves MD / [facility] Interpreting Provider: Sravanthi Reeves MD Qualifiers: Encounter type: initial encounter Fracture type: closed Fracture morphology: unspecified fracture morphology Fracture alignment: nondisplaced Laterality: right Qualified Code(s): S42.214A - Unspecified nondisplaced fracture of surgical neck of right humerus, initial encounter for closed fracture (2) Hemarthrosis involving knee joint Current Visit: Yes Status: Acute Assessment and plan: Imaging consistent with acute fracture to medial femoral condyle. Ortho onboard - recommend hinged knee brace and weight bearing as tolerated. Nonsurgical. Left lower leg neurovascularly intact. She was observed overnight as she was on coumadin and had a hemarthrosis. Coumadin still being held and edema to right knee much lessened today. Brace applied and PT and OT have recommended inpatient swing bed. 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 Attempting to place at [place]. She is medically cleared for transfer when possible. ITS Impressions Knee X-Ray 02/03/17 14:22 IMPRESSION: Normal alignment with no acute fracture. D/ / 02/03/2017 15:11:48 David David MD / [facility] Interpreting Provider: David David MD Knee CT 02/03/17 20:53 IMPRESSION: Acute traumatic mildly depressed intra-articular fracture involving medial femoral condyle. Associated large lipohemarthrosis. Minimal degenerative changes to the medial and patellofemoral compartments. Diffuse bone demineralization. Mild subcutaneous edema predominantly laterally. The findings were sent to the [facility]iology [facility] at 10:54 pm on 02/03/2017 to be communicated to a licensed caregiver. D/ / 02/03/2017 22:58:34 Sung Perera MD / [facility] Interpreting Provider: Sung Perera MD Qualifiers: Laterality: left Qualified Code(s): M25.062 - Hemarthrosis, left knee (3) Rib fractures Current Visit: Yes Status: Suspected Assessment and plan: imaging revealing possible fractures to right lateral ribs 5 through 7. Patient denies chest wall pain but currently has distracting injuries- will continue to monitor. She denies shortness of breath. ITS Impressions Humerus X-Ray 02/03/17 14:22/Shoulder X-Ray 02/03/17 14:22 IMPRESSION: 1. Acute nondisplaced proximal right humeral fracture likely through the surgical neck. This is otherwise not well-visualized due to underlying osteopenia. 2. Deformities of the right lateral 5th through 7th ribs likely representing age-indeterminate rib fractures. Recommend correlation to any acute focal pain in this region. D/ / 02/03/2017 15:15:29 Sravanthi Reeves MD / [facility] Interpreting Provider: Sravanthi Reeves MD Qualifiers: Encounter type: initial encounter Rib fracture type: multiple ribs Fracture type: closed Laterality: right Qualified Code(s): S22.41XA - Multiple fractures of ribs, right side, initial encounter for closed fracture (4) Inability to ambulate due to knee Current Visit: Yes Status: Acute Assessment and plan: awaiting placement (5) Combined systolic and diastolic heart failure Current Visit: Yes Status: Chronic Assessment and plan: No acute exacerbation. Patient's most recent echocardiogram was from 2013 which revealed an ejection fraction of 10-15% at that time. She is also on furosemide at home. Suspect combined systolic and diastolic heart failure without acute exacerbation. Qualifiers: Heart failure chronicity: chronic Qualified Code(s): I50.42 - Chronic combined systolic (congestive) and diastolic (congestive) heart failure (6) Anticoagulated on Coumadin Current Visit: Yes Status: Chronic Assessment and plan: holding; appreciate Ortho recommendations (7) Acute kidney injury superimposed on chronic kidney disease Current Visit: Yes Status: Acute Assessment and plan: Patient appears as if she may have chronic kidney disease either stage III or possibly even stage IV however I do not have prior lab results to determine chronicity. Renal function continues to improve, we will continue to trend and have her follow-up outpatient. (8) Type 2 diabetes mellitus Current Visit: Yes Status: Chronic Assessment and plan: Appears well controlled; will monitor Qualifiers: Diabetes mellitus complication status: without complication Diabetes mellitus snf insulin use: without snf use Qualified Code(s): E11.9 - Type 2 diabetes mellitus without complications (9) DVT prophylaxis Current Visit: Yes Status: Acute Assessment and plan: was therapeutic on coumadin yesterday- holding coumadin 2/2 ortho injuries. cannot tolerate IPC's 2/2 knee injury - Subjective Interval history: Patient seen and examined. On examination, patient sitting upright in bed watching television. She states that her pain is not currently controlled but is better than yesterday. She is complaining of left knee pain and right upper arm pain. She states she is eating well. She states that she attempted to stand up earlier today, but was unable to do so stating she was in too much pain. - Constitutional Vitals: Temp Pulse Resp BP Pulse Ox 98.2 F 60 17 150/53 98 02/05/17 11:26 02/05/17 11:26 02/05/17 11:26 02/05/17 11:26 02/05/17 11:26 General appearance: Present: mild distress (2/2 pain), A&O X 3, pleasant, answers questions appropriately - Head Head exam: Present: atraumatic, normocephalic - Eye Eye exam: Present: PERRL, conjuntiva pink, sclera anicteric Pupils: Present: PERRL - Neck Neck exam general surgery: Present: supple, trachea midline. Absent: lymphadenopathy - Respiratory Respiratory exam: Present: CTAB. Absent: accessory muscle use, rales, respiratory distress, rhonchi, wheezes - Cardiovascular Cardiovascular exam: Present: RRR, +S1, +S2. Absent: diastolic murmur, gallop, rubs, systolic murmur - GI/Abdominal GI/Abdominal exam: Present: normal bowel sounds, soft, no peritoneal signs. Absent: distended, tenderness - Extremities Exam Extremities exam: Present: warm, radial pulses palpable and symetrical. Absent : calf tenderness, cyanotic, pedal edema - Expanded Upper Extremities Exam Shoulder exam: Present: swelling, tenderness Vascular exam: Absent: vascular compromise - Expanded Lower Extremities Exam Knee exam: Present: swelling, tenderness. Absent: normal inspection Neuro vascular tendon exam: Present: no vascular compromise - Neurological Exam Neurological exam: Present: alert, CN II-XII intact, oriented X3, no focal deficits, strengths equal and symetr throughout. Absent: pronater drift, facial droop, speech deficit - Skin Skin exam: Present: dry, intact, pallor, warm Internal Medicine: Result - Labs CBC & Chem 7: 02/05/17 06:35 02/05/17 06:35 Labs: Short CBC 02/05/17 Range/Units 06:35 WBC 6.7 (4.3-11.1) K/mcL Hgb 11.1 L (11.5-15.4) g/dL Hct 34.3 L (35.3-44.9) % Plt Count 139 L (140-400) K/mcL Neutrophils # 4.7 (1.6-8.9) K/mcL BMP 02/05/17 06:35 Sodium 137 Potassium 4.2 Chloride 109 Carbon Dioxide 22 BUN 28 H Creatinine 1.29 H Glucose 94 Calcium 8.6 - ABG Interpretation ABG results: PT/INR, D-dimer PT 21.3 Seconds (9.4-12.1) H 02/05/17 06:35 Consult Discharge Plan - Plan Referrals: Lala Hernandez MD [Primary Care Provider] -
[2017-02-05] MEDS ORDERED: *HR* Warfarin 2 MG TABLET PO SCH (18:00)
--- NOTE | 2017-02-05 18:28 | Discharge Summary ---
Date of Encounter: 02/05/17 Time of Encounter: 09:30 - Discharge Diagnosis (1) Humeral surgical neck fracture Priority: Primary Status: Acute Comments: imaging consistent with acute fracture to right proximal humerus through the surgical neck. Ortho is onboard- non surgical. Recommendation for sling and physical therapy. Holding Coumadin. Distal arm neurovascularly intact and she is able to use her hand without limitations. Entry Level Electrician strong; radial pulse strong. Qualifiers: Encounter type: initial encounter Fracture type: closed Fracture morphology: unspecified fracture morphology Fracture alignment: nondisplaced Laterality: right Qualified Code(s): S42.214A - Unspecified nondisplaced fracture of surgical neck of right humerus, initial encounter for closed fracture (2) Hemarthrosis involving knee joint Priority: Primary Status: Acute Comments: Imaging consistent with acute fracture to medial femoral condyle. Ortho onboard - recommend hinged knee brace and weight bearing as tolerated. Nonsurgical. Left lower leg neurovascularly intact. She was observed overnight as she was on coumadin and had a hemarthrosis. Coumadin still being held and edema to right knee much lessened today. Brace applied and PT and OT have recommended inpatient swing bed. adult services librarian onboard. [facility] Qualifiers: Laterality: left Qualified Code(s): M25.062 - Hemarthrosis, left knee (3) Rib fractures Priority: Primary Status: Suspected Comments: imaging revealing possible fractures to right lateral ribs 5 through 7. Patient denies chest wall pain but also had distracting injuries- recommend continued surveillance outpatient. 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 Patient's most recent echocardiogram was from 2013 which revealed an ejection fraction of 10-15% at that time. She is also on furosemide at home. Suspect combined systolic and diastolic heart failure without acute exacerbation. Qualifiers: Heart failure chronicity: chronic Qualified Code(s): I50.42 - Chronic combined systolic (congestive) and diastolic (congestive) heart failure (6) Anticoagulated on Coumadin Priority: Secondary Status: Chronic Comments: will conitnue to hold for 3 days post discharge 2/2 hemarthrosis (7) Acute kidney injury superimposed on chronic kidney disease Priority: Primary Status: Acute Comments: Patient appears as if she may have chronic kidney disease either stage III or possibly even stage IV however I do not have prior lab results to determine chronicity. Renal function continued to improve while admitted. Follow-up outpatient. (8) Type 2 diabetes mellitus Priority: Secondary Status: Chronic Comments: Appears well-controlled, follow-up outpatient Qualifiers: Diabetes mellitus complication status: without complication Diabetes mellitus assisted insulin use: without bed bug exterminator use Qualified Code(s): E11.9 - Type 2 diabetes mellitus without complications (9) DVT prophylaxis Priority: Primary Status: Acute Comments: Was therapeutic on coumadin initially; held coumadin 2/2 ortho injuries. cannot tolerate IPC's 2/2 knee injury - Discharge Medications Prescriptions: HYDROcodone/Acet 7.5/325 mg [[place] 7.5-325 mg] 1 tab PO Q4HR PRN #25 tab PRN Reason: Pain Docusate [Colace] 100 mg PO BID PRN #30 PRN Reason: Constipation Home Medications: Acetaminophen [Tylenol] 500 mg PO Q6H PRN 02/03/17 [History] Allopurinol [Zyloprim 100 MG] 100 mg PO BID 02/03/17 [History] Amiodarone [Cordarone] 400 mg PO QAM 02/03/17 [History] Biotin 1 mg PO DAILY 02/03/17 [History] Calcitriol [Rocaltrol] 0.25 mcg PO DAILY 02/03/17 [History] Cholecalciferol (D-3) [Vitamin D] 3,000 unit PO DAILY 02/03/17 [History] Cyanocobalamin (Vitamin B-12) [Vitamin B-12] 250 mcg PO DAILY 02/03/17 [History] Enalapril Maleate [Vasotec] 20 mg PO BID 02/03/17 [History] Furosemide [Lasix] 40 mg PO Q48H 02/03/17 [History] Metoprolol [Lopressor] 25 mg PO BID 02/03/17 [History] Omeprazole [PriLOSEC] 20 mg PO BID 02/03/17 [History] Oxycodone HCl/Acetaminophen [Percocet 5-325 mg Tablet] 1 each PO BID PRN [History] Potassium Chloride [Klor-Con 10] 10 meq PO DAILY 02/03/17 [History] Warfarin [Coumadin] 1 mg PO Q48H 02/03/17 [History] Warfarin [Coumadin] 2 mg PO Q48H 02/03/17 [History] Docusate [Colace] 100 mg PO BID PRN #30 02/05/17 [Rx] HYDROcodone/Acet 7.5/325 mg [[place] 7.5-325 mg] 1 tab PO Q4HR PRN #25 tab [Rx] Allergies/Adverse Reactions: Allergies Sulfa (Sulfonamide Antibiotics) Allergy (Verified 02/03/17 14:01) Hives Procedures/tests Complete & Pending: Procedures Performed prior 72 hours Category Date Time Status CT knee RT wo con [CT] Routine Cat Scan 02/03/17 20:53 Completed Date of admission: 02/03/17 16:23 Primary care physician: Lala Hernandez MD Consults: 02/03/17 20:54 Consult to Orthopedic Surgery [CONS] Routine Consulting Provider: [facility] Reason for Consult: Right knee pain s/p fall with medial knee swelling, tenderness Call Completed: Yes 02/04/17 09:40 Consult to Occupational Therapy [CONS] Routine Comment: Evaluate, develop and implement POC Reason for Consult: Fall Consult to Physical Therapy [CONS] Routine Comment: Evaluate, develop and implement POC Reason for Consult: Fall. ortho states weight bearing as kenyon 02/04/17 12:04 Consult to Inside Tester [CONS] Routine Reason for SW Consult: Fracture x2, home health Discharging clinician: Josephine Cat Anticipated date of discharge: 02/05/17 (in rehab [facility]) - Patient Status Disposition: Transfer Inpatient Rehab Fac Condition: Fair Functional capacity at discharge: uses cane/walker Overall status at discharge: patient is progressing back to baseline - Discharge Instructions Follow Up With: Lala Hernandez MD [Primary Care Provider] - Additional Instructions: Follow-up with primary care provider within one to 2 weeks, resume Coumadin 3 days after discharge - Diet and Activity Activity: as per physical therapy, increase activity as tolerated Diet: diabetic diet, low fat, low cholesterol, low salt diet Hospital course: Ms. Rodríguez is a 71 year old female with past medical history of hypertension, hyperlipidemia, CAD, chronic kidney disease, atrial fibrillation on Coumadin, CHF, pacemaker. Patient presented to the emergency department with chief complaint of fall with right knee pain and right shoulder pain. Patient states she was pulling weeds in her yard when she pulled too hard on 1 foot and lost her balance and subsequently heard a pop in her right knee and landed on her right side injuring her right arm and her right knee. She was unable to bear weight on her right leg. Pain worsened with movement and palpation improved with pain medication. She denies hitting her head, or having any presyncopal feelings. She denied chest pain, palpitations, shortness of breath. Workup in the emergency department revealing acute nondisplaced right humeral head fracture as well as an acute fracture to her medial femoral condyle. Patient was admitted to the hospitalist service for further evaluation and management. Orthopedic surgery was brought on board. For her shoulder, they recommended medical management with a sling and physical therapy. They surmised this is likely nonsurgical. Her Coumadin was held during this admission. Her right arm remained neurovascularly intact and she was able to use her hand without limitations. Regarding her knee, orthopedics recommended a hinged knee brace and weightbearing as tolerated and also likely nonsurgical. Given that she had an associated hemarthrosis, her Coumadin was held and she was observed overnight and her edema lessened greatly. She was evaluated by occupational and physical therapy who recommended inpatient/swing bed. Her pain was controlled with by mouth chronic pain medication. Of note, imaging also revealing possible rib fractures to her right lateral ribs 5 through 9. Patient denied chest pain however she had distracting injuries so recommend continued surveillance outpatient. She denied shortness of breath throughout this admission. She had mild acute kidney injury with suspected chronic kidney disease however no prior lab results were available to determine chronicity. Renal functioning improved during this admission. Recommend continued follow- up outpatient. She was transferred to [facility] in stable condition with close outpatient follow-up recommended. She was instructed to resume her Coumadin 3 days after discharge. ITS Impressions Humerus X-Ray 02/03/17 14:22 IMPRESSION: 1. Acute nondisplaced proximal right humeral fracture likely through the surgical neck. This is otherwise not well-visualized due to underlying osteopenia. 2. Deformities of the right lateral 5th through 7th ribs likely representing age-indeterminate rib fractures. Recommend correlation to any acute focal pain in this region. D/ / 02/03/2017 15:15:29 Sravanthi Reeves MD / [facility] Interpreting Provider: Sravanthi Reeves MD Knee X-Ray 02/03/17 14:22 IMPRESSION: Normal alignment with no acute fracture. D/ / 02/03/2017 15:11:48 [facility] Provider: David David MD Shoulder X-Ray 02/03/17 14:22 IMPRESSION: 1. Acute nondisplaced proximal right humeral fracture likely through the surgical neck. This is otherwise not well-visualized due to underlying osteopenia. 2. Deformities of the right lateral 5th through 7th ribs likely representing age-indeterminate rib fractures. Recommend correlation to any acute focal pain in this region. D/ / 02/03/2017 15:15:29 Sravanthi Reeves MD / [facility] Interpreting Provider: Sravanthi Reeves MD Knee CT 02/03/17 20:53 IMPRESSION: Acute traumatic mildly depressed intra-articular fracture involving medial femoral condyle. Associated large lipohemarthrosis. Minimal degenerative changes to the medial and patellofemoral compartments. Diffuse bone demineralization. Mild subcutaneous edema predominantly laterally. The findings were sent to the Radiology Results Communication Center at 10:54 pm on 02/03/2017 to be communicated to a licensed caregiver. D/ / 02/03/2017 22:58:34 Sung Perera MD / [facility] Inter[facility] Provider: Sung Perera MD - Time Spent with Patient Total time spent providing and/or coordinating discharge services: - Constitutional Vitals: Temp Pulse Resp BP Pulse Ox 97.9 F 59 17 141/79 97 02/05/17 15:18 02/05/17 15:18 02/05/17 15:18 02/05/17 15:18 02/05/17 15:18 General appearance: Present: A&O X 3, pleasant, no acute distress, answers questions appropriately - Head Head exam: Present: atraumatic, normocephalic - Eye Eye exam: Present: PERRL, conjuntiva pink, sclera anicteric Pupils: Present: PERRL - Neck Neck exam general surgery: Present: supple, trachea midline. Absent: lymphadenopathy - Respiratory Respiratory exam: Present: CTAB. Absent: accessory muscle use, chest wall tenderness, rales, respiratory distress, rhonchi, wheezes - Cardiovascular Cardiovascular exam: Present: RRR, +S1, +S2. Absent: diastolic murmur, gallop, rubs, systolic murmur - GI/Abdominal GI/Abdominal exam: Present: normal bowel sounds, soft, no peritoneal signs. Absent: distended, tenderness - Extremities Exam Extremities exam: Present: warm, radial pulses palpable and symetrical. Absent : calf tenderness, cyanotic, pedal edema - Expanded Upper Extremities Exam Shoulder exam: Present: swelling, tenderness Vascular exam: Absent: vascular compromise - Expanded Lower Extremities Exam Knee exam: Present: swelling, tenderness Neuro vascular tendon exam: Present: no vascular compromise - Neurological Exam Neurological exam: Present: alert, CN II-XII intact, oriented X3, no focal deficits, strengths equal and symetr throughout. Absent: pronater drift, facial droop, speech deficit - Skin Skin exam: Present: dry, intact, normal color, warm
--- NOTE | 2017-02-05 18:45 | Physician Discharge Referral ---
ExtendedCare Referral Info Transfer To: [facility] Provider in Charge: Dinora Cat CNP Provider in Charge after Transfer: PCP Institutional Level of Care: Skilled - Diagnosis (1) Humeral surgical neck fracture Status: Acute (2) Hemarthrosis involving knee joint Priority: Primary Status: Acute (3) Rib fractures Priority: Primary Status: Suspected (4) Inability to ambulate due to knee Priority: Primary Status: Acute (5) Combined systolic and diastolic heart failure Priority: Secondary Status: Chronic (6) Anticoagulated on Coumadin Priority: Secondary Status: Chronic (7) Acute kidney injury superimposed on chronic kidney disease Priority: Primary Status: Acute (8) Type 2 diabetes mellitus Priority: Secondary Status: Chronic (9) DVT prophylaxis Priority: Primary Status: Acute Prognosis: Good Aware of Diagnosis: Patient Aware of Prognosis: Patient - Transfer Medications Prescriptions: HYDROcodone/Acet 7.5/325 mg [[place] 7.5-325 mg] 1 tab PO Q4HR PRN #25 tab PRN Reason: Pain Docusate [Colace] 100 mg PO BID PRN #30 PRN Reason: Constipation Home Medications: Acetaminophen [Tylenol] 500 mg PO Q6H PRN 02/03/17 [History] Allopurinol [Zyloprim 100 MG] 100 mg PO BID 02/03/17 [History] Amiodarone [Cordarone] 400 mg PO QAM 02/03/17 [History] Biotin 1 mg PO DAILY 02/03/17 [History] Calcitriol [Rocaltrol] 0.25 mcg PO DAILY 02/03/17 [History] Cholecalciferol (D-3) [Vitamin D] 3,000 unit PO DAILY 02/03/17 [History] Cyanocobalamin (Vitamin B-12) [Vitamin B-12] 250 mcg PO DAILY 02/03/17 [History] Enalapril Maleate [Vasotec] 20 mg PO BID 02/03/17 [History] Furosemide [Lasix] 40 mg PO Q48H 02/03/17 [History] Metoprolol [Lopressor] 25 mg PO BID 02/03/17 [History] Omeprazole [PriLOSEC] 20 mg PO BID 02/03/17 [History] Oxycodone HCl/Acetaminophen [Percocet 5-325 mg Tablet] 1 each PO BID PRN [History] Potassium Chloride [Klor-Con 10] 10 meq PO DAILY 02/03/17 [History] Warfarin [Coumadin] 1 mg PO Q48H 02/03/17 [History] Warfarin [Coumadin] 2 mg PO Q48H 02/03/17 [History] Docusate [Colace] 100 mg PO BID PRN #30 02/05/17 [Rx] HYDROcodone/Acet 7.5/325 mg [[place] 7.5-325 mg] 1 tab PO Q4HR PRN #25 tab [Rx] Allergies/Adverse Reactions: Allergies Sulfa (Sulfonamide Antibiotics) Allergy (Verified 02/03/17 14:01) Hives - Respiratory Orders Smoking Cessation: Smoking cessation has been advised. For more information, call the [employer] Tobacco Quit Line at 2-116-DCJI-NOW. - Ancillary Orders May use pressure relief devices daily prn, May go on JOANA w/family/respon green party w /meds at nurse discretion PRN, May have alcoholic beverages, May consult with Dentist, Para Professional, Automation Application Engineer PRN - Advance Directives Living Will: Yes Power of Game Bird Farmer: Yes Code Status: DNR-Arrest - Mobility Orders Ambulate (per PT) - Rehabiliation Orders Rehab Potential: Good Rehab Orders: ROM Exercises, Evaluation for Physical Therapy, Evaluation for Occupational Therapy - Treatments Skin tear care topically daily PRN per policy, May check for fecal impaction rectally daily PRN, Fleet enema rectally every other day PRN cleansing purposes CERTIFICATION: I certify that the transfer of the above named patient to an Extended Care Facility is necessary for the continuing treatment of the diagnosis listed. The above information is true and accurate reflection of patient's current condition. Confidential - Redisclosure prohibited without a patient's written consent.
[2017-02-05 18:57] VITALS: BP 129/69
== END 2017-02-05 21:10 ==
LOC: 3BNU 13:44 → EMEROO 13:44 → SUATTDRO 16:23 → 3BNU 16:58
PROVIDERS: ADMIT Registered Nurse; ATTEND Nurse Practitioner Family

== ENCOUNTER 2017-04-12 07:58 | Inpatient (IN) ==
[2017-04-12] MEDS ORDERED: Ondansetron 4 MG/2 ML VIAL IVP PRN (13:58)
[2017-04-12] MEDS ORDERED: Acetaminophen 325 MG TABLET PO PRN (13:58)
[2017-04-12] MEDS ORDERED: Naloxone 0.4 MG/ML INJ IVP PRN (13:58)
[2017-04-12] MEDS ORDERED: Albuterol 2.5 MG/3 ML NEBULIZER IH PRN (14:09)
[2017-04-12 14:34] LABS: INR 1.5; Prothrombin Time 16.5 Seconds (9.4-12.1)
[2017-04-12] MEDS: *HR* Morphine 2 MG/ML SYRINGE IVP PRN ×2 (15:01→23:22)
--- NOTE | 2017-04-12 15:05 | Internal Med History&Physical ---
<MastAugust - Last Filed: 04/12/17 16:18> Date of Encounter: 04/12/17 Internal Medicine - H&P: HPI History of present illness: Ms. Rodríguez is a 71 year old female Internal Medicine - H&P: Meds Allopurinol [Zyloprim 100 MG] 100 mg PO BID 02/03/17 [History] Amiodarone [Cordarone] 400 mg PO QAM 02/03/17 [History] Biotin 1 mg PO DAILY 02/03/17 [History] Calcitriol [Rocaltrol] 0.25 mcg PO DAILY 02/03/17 [History] Cholecalciferol (D-3) [Vitamin D] 1,000 unit PO DAILY 02/03/17 [History] Cyanocobalamin (Vitamin B-12) [Vitamin B-12] 250 mcg PO DAILY 02/03/17 [History] Enalapril Maleate [Vasotec] 20 mg PO BID 02/03/17 [History] Furosemide [Lasix] 40 mg PO SUTUTHSA 02/03/17 [History] Metoprolol [Lopressor] 25 mg PO BID 02/03/17 [History] Omeprazole [PriLOSEC] 20 mg PO BID 02/03/17 [History] Potassium Chloride [Klor-Con 10] 10 meq PO DAILY 02/03/17 [History] Warfarin [Coumadin] 2 mg PO Q48H 02/03/17 [History] cephALEXin [Keflex] 500 mg PO BID 04/12/17 [History] 3 Allergy/AdvReac Type Severity Reaction Status Date / Time Sulfa (Sulfonamide Allergy See Verified 04/12/17 11:42 Antibiotics) Comments All Systems PM: A 10-system review of systems was performed and is negative for pertinent findings except as documented above in the HPI. - Constitutional Vitals: Temp Pulse Resp BP Pulse Ox 98.3 F 60 18 187/74 91 04/12/17 15:20 04/12/17 15:20 04/12/17 15:20 04/12/17 15:20 04/12/17 15:20 - Attending Attestation I personally interviewed, and examined this patient. I reviewed all labs and studies. I agree witht he findings, assessment and plan of MORELIA Correa. Pt clinically has mild CHF, and a hx of isch cardiomyopathy. Agree with IV Lasix and will consult cardiology as well as pt is high risk for periop cardiovascular complications. With hx Afib, agree with hep drip and monitor for any sx of blood loss. Pt has abn lung exam which I suspect is due to CHF +/ - bronchitis. 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 WE discussed case in detail. <Desiree Correa - Last Filed: 04/13/17 00:33> Date of Encounter: 04/13/17 Time of Encounter: 13:00 Assessment and Plan (1) Femur fracture, left Current visit: Yes Status: Acute Patient had a fall from standing with the left side. She was unable to stand him bear weight onto her left side. CT confirmed intertrochanteric left femur fracture with mildly displaced fragments. We did consult orthopedics I spoke with Dr. Delaney. We are concerned because patient does have a extensive cardiac history and appears to be experiencing some respiratory changes. We will consult cardiology for preop clearance 2 patient is placed on heparin drip for anticoagulation due to his history of atrial flutter and is on Coumadin. Consult PT OT Incentive spirometry Morphine as needed for pain We will place Morel catheter due to patient receiving Lasix Qualifiers: Encounter type: initial encounter Femur location: intertrochanteric Fracture type: closed Fracture alignment: displaced Qualified Code(s): S72.142A - Displaced intertrochanteric fracture of left femur, initial encounter for closed fracture (2) Anticoagulated on Coumadin Current visit: No Status: Chronic Patient is on anticoagulation of Coumadin for chronic atrial fibrillation. She is to undergo orthopedic surgery. 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 Patient has been experiencing cough she appears to be experiencing some mild respiratory distress with a drop in his PO2 she has some scattered rhonchi. And lower extremity edema We will give IV Lasix Monitor intake and output daily weights We will obtain a cardiac echo Qualifiers: Heart failure chronicity: chronic Qualified Code(s): I50.42 - Chronic combined systolic (congestive) and diastolic (congestive) heart failure (5) Hypokalemia Current visit: Yes Status: Acute Patient potassium was 2.6 she did receive a K rider and outlying facility. We will continue with potassium 20 mEq by mouth twice a day We will recheck and monitor potassium and replace as needed (6) Diarrhea Current visit: Yes Status: Acute Patient has been receiving antibiotics for treatment of cellulitis and a cough. She developed watery diarrhea yesterday. She has had approximate 4 episodes. We will obtain stool for C. difficile. We will place an contact isolation Qualifiers: Diarrhea type: unspecified type Qualified Code(s): R19.7 - Diarrhea, unspecified (7) DVT prophylaxis Current visit: No Status: Acute Heparin drip (8) Atrial fibrillation Current visit: No Status: Chronic Patient has chronic history of atrial fibrillation presently rate controlled. We will continue with amiodarone and metoprolol. We will hold Coumadin for now placed on heparin for impending surgery Qualifiers: Atrial fibrillation type: chronic Qualified Code(s): I48.2 - Chronic atrial fibrillation (9) Coronary artery disease Current visit: No Status: Chronic Patient has history of CAD, we will continue with statin beta dang nitrates as needed Qualifiers: Coronary Disease-Associated Artery/Lesion type: bypass graft [place] vs. transplanted heart: [place] heart Associated angina: without angina Qualified Code(s): I25.810 - Atherosclerosis of coronary artery bypass graft(s) without angina pectoris Internal Medicine - H&P: HPI Chief complaint: fall Admitted From: Hospital to Hospital Transfer Plans for Post Hospital Care: Home History of present illness: Ms. Rodríguez is a 71 year old female past medical history of diabetes congestive heart failure AICD atrial flutter CAD hypertension cardiac arrest 4 years ago. According to the patient she had that episode of cellulitis was placed on antibiotics and then she had a cough primary care's placed her on Keflex. She said after a few days of Keflex, developed diarrhea yesterday describing as watery positive for episodes. This morning she was attempting to get out of bed to go to the bathroom and lost her balance and fell onto her left side. She was unable to bear weight and EMS was called. She was transported to the ER at [facility] for further workup and evaluation. CT of pelvis without contrast did reveal an intertrochanteric left femur fracture with mildly displaced fragments. Lab work was obtained which did reveal hypo- kalemia 2.6 which was replaced as the lab work was unremarkable. Chest x-ray with no acute process ER physician did speak with Dr. Delnaey who agreed to see patient for consult after being transferred to [place] patient has been admitted for further workup evaluation. Presently patient denies any shortness of breath or chest pain she does admit to a nonproductive cough. She does not appear to be any rest or distress she has scattered rhonchi throughout her lung ramsay heart sounds are irregular S1-S2 with no rubs clicks, murmurs noted abdomen soft and nontender left leg is shortened and externally rotated pulses are present bilaterally with brisk capillary refills. Her SPO2 is 9091% on room air she was placed on 2 L of oxygen nasal cannula which did bump her up to 94- 95. I reviewed this case with Dr. Mast who agrees with plan. Past Med Surg Social Fam HX - Past Medical History Medical history: atrial fibrillation, CHF, diabetes, GERD, hyperlipidemia, hypertension, myocardial infarction, renal disease Psychiatric history: no psych history - Past Surgical History Surgical History: cholecystectomy, pacemaker/AICD - Social History Smoking Status: Former smoker Smokeless Tobacco Status: No Alcohol use: none Drug use: none - Family History Mother Living Status: Hx Family Endocrine Disorder: Yes (diabetes) Father Living Status: Hx Family Cardiac Disorders: Yes All Systems PM: A 10-system review of systems was performed and is negative for pertinent findings except as documented above in the HPI. - Constitutional Constitutional: no chills, no fever(s), no night sweats - EENT Eyes: no change in vision, no discharge, no pain, no photophobia Nose, mouth and throat: no dysphagia, no nasal discharge, no neck pain, no sore throat - Cardiovascular Cardiovascular ROS IM: dyspnea, dyspnea on exertion, edema, no chest pain, no diaphoresis, no lightheadedness, no palpitations, no syncope - Respiratory Respiratory: cough - Gastrointestinal Gastrointestinal: no abdominal pain, no diarrhea, no hematemesis, no hematochezia, no melena, no nausea, no vomiting - Genitourinary Genitourinary: no change in urinary stream, no dysuria, no flank pain, no hematuria - Musculoskeletal Musculoskeletal ROS IM: no numbness, no tingling - Integumentary Integumentary IM: no rash, no unusual bruising - Neurological Neurological ROS: no confusion, no convulsions, no focal weakness, no numbness, no tingling, no tremor(s) - Hematologic/Lymphatic Hematologic/Lymphatic: no easy bruising - Constitutional Vitals: Temp Pulse Resp BP Pulse Ox 98.5 F 60 18 190/68 90 04/12/17 12:56 04/12/17 12:56 04/12/17 12:56 04/12/17 12:56 04/12/17 12:49 General appearance: Present: A&O X 3, answers questions appropriately - Head Head exam: Present: atraumatic, normocephalic - Eye Eye exam: Present: PERRL, conjuntiva pink, sclera anicteric Pupils: Present: PERRL - Neck Neck exam general surgery: Present: supple, trachea midline. Absent: lymphadenopathy - Respiratory Respiratory exam: Present: rhonchi. Absent: accessory muscle use, rales, wheezes - Cardiovascular Cardiovascular exam: Present: irregular rhythm, +S1, +S2. Absent: diastolic murmur, gallop, rubs, systolic murmur - GI/Abdominal GI/Abdominal exam: Present: normal bowel sounds, soft, no peritoneal signs. Absent: distended, tenderness - Extremities Exam Extremities exam: Present: pedal edema, warm, radial pulses palpable and symmetrical. Absent: calf tenderness, cyanotic - Neurological Exam Neurological exam: Present: CN II-XII intact, oriented X3, no focal deficits. Absent: pronater drift, facial droop, speech deficit - Skin Skin exam: Present: dry, intact Internal Med - H&P Results - Labs CBC & Chem 7: 04/12/17 16:36 Labs: CBC WBC is 4.6 hemoglobin 0.3 hematocrit 34.7 platelets 102 chemistry sodium 142 potassium 2.6 chloride 107 bicarbonate 25 BUN 11 creatinine 1.09 glucose 113
[2017-04-12] MEDS ORDERED: *HR* Dextrose 50 % in Water (Syg) 50 ML SYRINGE IVP PRN (15:23)
[2017-04-12] MEDS ORDERED: Dextrose Gel 15 GM PO PRN ×2 (15:23)
[2017-04-12] MEDS ORDERED: D5% in Water 1,000 ML IVC PRN (15:23)
[2017-04-12] MEDS ORDERED: *HR* Heparin 5,000 UNIT/ML VIAL IVP PRN ×2 (15:57)
[2017-04-12] MEDS: *HR* HYDROcodone/Acet 5/325 mg TABLET PO PRN ×2 (16:12→20:45)
[2017-04-12] MEDS: Furosemide 40 MG/4 ML VIAL IVP SCH (16:12)
[2017-04-12] MEDS: Ipratropium/Albuterol Neb 3 ML IH SCH ×2 (16:18→21:56)
[2017-04-12 16:44] LABS: Hematocrit 35.1 % (35.3-44.9); Hemoglobin 11.2 g/dL (11.5-15.4); Mean Corpuscular HGB Conc 31.9 g/dL (31.6-35.5); Mean Corpuscular Hemoglobin 29.6 pg (28.0-33.3); Mean Corpuscular Volume 92.9 fL (83.0-100.0); Mean Platelet Volume 12.5 fL (9.4-12.4); Platelet Count 125 K/mcL (140-400); Red Blood Count 3.78 M/mcL (3.82-4.97); Red Cell Distribution Width 15.5 % (11.5-14.5)
[2017-04-12] MEDS: Insulin LISPRO 300 UNITS/3 ML VIAL SQ SCH ×2 (17:39→20:46)
[2017-04-12] MEDS ORDERED: Warfarin perPT PO PRN (18:00)
[2017-04-12] MEDS ORDERED: *HR* Warfarin 2 MG TABLET PO SCH (18:00)
[2017-04-12] MEDS: Heparin 25,000 UNIT/500 ML D5W 25,000 UNIT/500 ML MLS IVC SCH (18:11)
[2017-04-12] MEDS: Lisinopril 20 MG TABLET PO SCH (20:34)
[2017-04-12] MEDS: Nystatin POWDER 30 GM BOTTLE TP SCH (20:35)
[2017-04-13 01:59] LABS: Basophils % 0.4 %; Eosinophils % 0.4 %; Hematocrit 34.1 % (35.3-44.9); Hemoglobin 10.6 g/dL (11.5-15.4); Immature Granulocytes % 0.3 % (0-4); Lymphocytes # 0.8 K/mcL (0.6-4.6); Lymphocytes % 11.4 %; Mean Corpuscular HGB Conc 31.1 g/dL (31.6-35.5); Mean Corpuscular Hemoglobin 28.9 pg (28.0-33.3); Mean Corpuscular Volume 92.9 fL (83.0-100.0); Mean Platelet Volume 13.3 fL (9.4-12.4); Monocytes # 0.5 K/mcL (0.0-1.3); Monocytes % 6.5 %; Neutrophils # 5.8 K/mcL (1.6-8.9); Platelet Count 141 K/mcL (140-400); Red Blood Count 3.67 M/mcL (3.82-4.97); Red Cell Distribution Width 15.4 % (11.5-14.5)
[2017-04-13 02:07] LABS: INR 1.5; Prothrombin Time 16.6 Seconds (9.4-12.1)
[2017-04-13 02:10] LABS: Activated Partial Thrombo Time 97.3 Seconds (26.0-36.0)
[2017-04-13 02:14] LABS: BUN/Creatinine Ratio 10 (6-26); Blood Urea Nitrogen 10 mg/dL (7-20); Calcium 7.9 mg/dL (8.6-10.8); Carbon Dioxide 25 mEq/L (19-29); Chloride 107 mEq/L (98-109); Glucose 115 mg/dL (70-99); Magnesium 1.1 mg/dL (1.6-2.6); Osmolality,Calculated 294 (280-300); Potassium 2.9 mEq/L (3.5-4.5); Sodium 142 mEq/L (136-145); eGFR For African Americans > 60 (> 60); eGFR For Non-African Americans 57 (> 60)
[2017-04-13] MEDS: Ipratropium/Albuterol Neb 3 ML IH SCH ×4 (04:28→21:17)
[2017-04-13] MEDS: Furosemide 40 MG/4 ML VIAL IVP SCH ×2 (07:31→16:47)
[2017-04-13] MEDS: Lisinopril 20 MG TABLET PO SCH ×2 (07:31→21:52)
[2017-04-13] MEDS: *HR* Morphine 2 MG/ML SYRINGE IVP PRN ×4 (07:31→23:20)
[2017-04-13] MEDS: *HR* Amiodarone 200 MG TABLET PO SCH (07:31)
[2017-04-13] MEDS: Insulin LISPRO 300 UNITS/3 ML VIAL SQ SCH ×4 (07:58→21:53)
[2017-04-13] MEDS ORDERED: Potassium Chloride Elixir 20 MEQ/15 ML UDC PO ONE (09:32)
[2017-04-13] MEDS: *HR* HYDROcodone/Acet 5/325 mg TABLET PO PRN ×3 (09:53→21:51)
[2017-04-13] MEDS: Nystatin POWDER 30 GM BOTTLE TP SCH ×2 (09:54→21:55)
--- NOTE | 2017-04-13 10:13 | Orthopedic Consult Note ---
Date of Encounter: 04/13/17 Time of Encounter: 08:00 Assessment and Plan (1) Intertrochanteric fracture of left hip Current Visit: Yes Status: Acute Patient seen and evaluted. Conservative and surgical interventions discussed with the patient. Plan also reviewed with . Patient would like to proceed with surgical intervention to best optimize fracture and healing. Plan for Left Hip IM nailing with today 04/13/17. Risks versus benefits reviewed with patient. Consent discussed and reviewed. Patient's questions were addressed and patient signed consent. Consent placed in chart. Patient made NPO, breakfast tray removed. Hospitalist contacted by nurse to stop Heparin drip for anticipated surgery today. Will plan to resume Coumadin after surgery based off hospitalist recommendations, following PT/INR. Echo pending today. Along with Cardiac consultation for pre-operative optimization. Nurse made aware of plan. 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: unspecified ballaster insulin use status Chronic kidney disease stage: stage 2 (mild) Qualified Code(s): E11.22 - Type 2 diabetes mellitus with diabetic chronic kidney disease; N18.2 - Chronic kidney disease, stage 2 (mild) (4) Combined systolic and diastolic heart failure Current Visit: No Status: Chronic Qualifiers: Heart failure chronicity: chronic Qualified Code(s): I50.42 - Chronic combined systolic (congestive) and diastolic (congestive) heart failure (5) Hypokalemia Current Visit: Yes Status: Acute (6) Atrial fibrillation Current Visit: No Status: Chronic Qualifiers: Atrial fibrillation type: chronic Qualified Code(s): I48.2 - Chronic atrial fibrillation History of Present Illness Chief complaint: Fall, Left Hip Fracture HPI: Ms. Rodríguez is a 71 year old female, 71 year old female A&O x 3. She reported to ED on 04/12 after a mechanical fall while trying to get out of her bed at home to use the restroom. She fell onto her left side, and unable to ambulate secondary to pain. She was transferred from ED at [facility]. CT scan performed of Left hip - an intertrochanteric left femur fracture with mildly displaced fragments. She denies N/T. Admits to pain radiation to groin and inability to WB. Morel catheter in place. Left leg is shortened and externally. She denies LOC, Headache or syncope. Past medical history of diabetes congestive heart failure, AICD, atrial flutter , CAD, hypertension, cardiac arrest 4 years ago. Awaiting Cardiac consultation. Echocardiogram scheduled for 04/13 at 10AM. According to the patient she had that episode of cellulitis was placed on antibiotics and then she had a cough primary care's placed her on Keflex. She said after a few days of Keflex, developed diarrhea yesterday describing as watery positive for episodes. No current s/s of diarrhea at the time. Afebrile and WBC normal. Hypokalemia improved . Patient denies shortness of breath or chest pain, she does admit to a nonproductive cough. Chest x-ray with no acute process. Patient she had that episode of cellulitis, was placed on antibiotics and then she had a cough, and was started on Keflex by PCP. She said after a few days of Keflex, developed diarrhea yesterday describing as watery positive for episodes. She does not appear to be any rest or distress. Her SPO2 is 90-91% on room air and currently on 2 L of oxygen nasal cannula. Past Med Surg Social Fam HX - Past Medical History Medical history: atrial fibrillation, CHF, diabetes, GERD, hyperlipidemia, hypertension, myocardial infarction, renal disease Psychiatric history: no psych history - Past Surgical History Surgical History: cholecystectomy, pacemaker/AICD - Social History Smoking Status: Former smoker Smokeless Tobacco Status: No Alcohol use: none Drug use: none - Family History Mother Living Status: Hx Family Endocrine Disorder: Yes (diabetes) Father Living Status: Hx Family Cardiac Disorders: Yes Medications and Allergies Allopurinol [Zyloprim 100 MG] 100 mg PO BID 02/03/17 [History] Amiodarone [Cordarone] 400 mg PO QAM 02/03/17 [History] Biotin 1 mg PO DAILY 02/03/17 [History] Calcitriol [Rocaltrol] 0.25 mcg PO DAILY 02/03/17 [History] Cholecalciferol (D-3) [Vitamin D] 1,000 unit PO DAILY 02/03/17 [History] Cyanocobalamin (Vitamin B-12) [Vitamin B-12] 250 mcg PO DAILY 02/03/17 [History] Enalapril Maleate [Vasotec] 20 mg PO BID 02/03/17 [History] Furosemide [Lasix] 40 mg PO SUTUTHSA 02/03/17 [History] Metoprolol [Lopressor] 25 mg PO BID 02/03/17 [History] Omeprazole [PriLOSEC] 20 mg PO BID 02/03/17 [History] Potassium Chloride [Klor-Con 10] 10 meq PO DAILY 02/03/17 [History] Warfarin [Coumadin] 2 mg PO Q48H 02/03/17 [History] cephALEXin [Keflex] 500 mg PO BID 04/12/17 [History] 3 Allergy/AdvReac Type Severity Reaction Status Date / Time Sulfa (Sulfonamide Allergy See Verified 04/12/17 11:42 Antibiotics) Comments All Systems Reviewed: A 10-system review of systems was performed and is negative for pertinent findings except as documented above in the HPI. - Constitutional Constitutional: as per HPI, weakness, no fever(s), no frequent falls - Cardiovascular Cardiovascular: as per HPI, no chest pain, no dyspnea, no syncope - Respiratory Respiratory: as per HPI, cough - Musculoskeletal Musculoskeletal: as per HPI Physical Exam - Constitutional Vitals: Temp Pulse Resp BP Pulse Ox 99.2 F 49 15 156/63 98 04/13/17 07:50 04/13/17 07:50 04/13/17 07:50 04/13/17 07:50 04/13/17 07:50 General appearance IM: A&O X 3, pleasant, no acute distress - Fracture left hip Location of fracture: Left Intertrochanteric Hip Appearance: other (ER and shortened LLE) Open wound: No Compartments: soft Distal extremity neurovascularly intact: Yes Proximal joint involvement: No Distal joint involvement: No Results - Labs Result Diagrams: 04/13/17 01:02 04/13/17 01:02 Labs: Abnormal lab results RBC 3.67 M/mcL (3.82-4.97) L 04/13/17 01:02 Hgb 10.6 g/dL (11.5-15.4) L 04/13/17 01:02 Hct 34.1 % (35.3-44.9) L 04/13/17 01:02 MCHC 31.1 g/dL (31.6-35.5) L 04/13/17 01:02 RDW 15.4 % (11.5-14.5) H 04/13/17 01:02 MPV 13.3 fL (9.4-12.4) H 04/13/17 01:02 PT 16.6 Seconds (9.4-12.1) H 04/13/17 01:02 APTT 68.2 Seconds (26.0-36.0) H 04/13/17 08:36 Potassium 2.9 mEq/L (3.5-4.5) L 04/13/17 01:02 Est GFR (Non-Af Amer) 57 (> 60) L 04/13/17 01:02 Glucose 115 mg/dL (70-99) H 04/13/17 01:02 POC Glucose 123 (58-89) H 04/12/17 20:44 Calcium 7.9 mg/dL (8.6-10.8) L 04/13/17 01:02 Magnesium 1.1 mg/dL (1.6-2.6) L 04/13/17 01:02 Troponin I 0.07 ng/mL (0-0.03) H* 04/13/17 03:41 H & H 04/12/17 04/13/17 Range/Units 16:36 01:02 Hgb 11.2 L 10.6 L (11.5-15.4) g/dL Hct 35.1 L 34.1 L (35.3-44.9) % All other labs normal. - Diagnostic results Hip CT: report reviewed Consult Discharge Plan - Plan Referrals: Lala Hernandez MD [Primary Care Provider] -
[2017-04-13] MEDS: Magnesium Sulfate 1 GM in D5% in Water 100 ML IVPB SCH ×4 (10:18→21:52)
--- NOTE | 2017-04-13 11:53 | Cardiology Consult Note ---
Addendum entered and electronically signed by Maral Olguin CNP 04/13/17 13: 34: Device check completed this AM, reviewed report with [employer] rep-- normal functioning BiV-ICD without events. Original Note: <Maral Olguin - Last Filed: 04/13/17 13:31> Date of Encounter: 04/13/17 Time of Encounter: 12:00 Assessment and Plan (1) Preoperative cardiovascular examination Current Visit: Yes Status: Acute Preoperative Cardiovascular examination for surgical repair of femur fracture. Patient is DNRCC-DNI. Longstanding history of systolic dysfunction, reports initially diagnosed in 2000. Reports NYHA class II-III symptoms. Per patient, reportedly nonischemic in etiology, follows with outside [facility]. Troponin 0.07 x3, 0.06--flat and adynamic; non-diagnostic. Likely secondary to demand ischemia, patient denies chest pain. Hx of BiV-ICD, reports last generator change/upgrade 3 years ago. Appears volume overload upon exam, would recommend optimization of respiratory status/CHF prior to proceeding with surgery if able. Agree with IV diuresis. TTE today shows LVEF 30-35% with mild MR, which is improved from prior report of 10-15% with severe MR in September 2013. Acceptable to hold coumadin (Afib) in the song-operative period and restart when able. Bridging with heparin not necessary. She is a intermediate surgical risk candidate for orthopedic surgery given hx of cardiomyopathy. Again, recommend optimization of clinical status prior to proceeding with surgery if able. (2) Cardiomyopathy Current Visit: Yes Status: Acute Suspect non-ischemic in etiology per reports; request records. Change lopressor to Toprol XL, continue ACEi. Agree with IV diuresis. Monitor electrolytes closely, Mag replaced with IVPB this AM. Strict I&O's, daily weights, Na/fluid restriction diet. Recommend betablocker in the song-operative period. Qualifiers: Cardiomyopathy type: unspecified Qualified Code(s): I42.9 - Cardiomyopathy , unspecified (3) Atrial fibrillation Current Visit: Yes Status: Chronic Reports history of afib on amiodarone for rhythm control and coumadin for anticoagulation. Qualifiers: Atrial fibrillation type: chronic Qualified Code(s): I48.2 - Chronic atrial fibrillation Discussion w patient/family: The assessment and plan as outlined above was discussed with the patient and/or family members who expressed understanding and agreement. All questions were answered. Thank you for involving us in the care of your patient. Please call with any questions. The patient will be discussed and reviewed with Dr. Price; changes to be made accordingly. History of Present Illness Consult date: 04/13/17 Requesting physician: Desiree Correa Consult reason: pre-operative risk Chief complaint: Fall History of present illness: Ms. 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 Patient reports loose stools over the past several days and tripped while hurrying to the bathroom. She was then transferred to [facility] for possible surgical repair of left femur fracture. Of note , recent fall in January with injury to left shoulder and knee due to mechanical fall. Reports long-standing history of cardiomyopathy dating back to 2000 per patient. Reports upgrade to BiV-ICD x3 years ago--device implanted right upper chest pain. Hx of infection to prior device in left upper chest wall. Reports has "clean coronary arteries." Denies hx of ICD shock or fire. Routinely follows with [facility], Dr. Woo. Prior TTE (2013) demonstrates LVEF 10-15% with global hypokinesis and severe MR. Past Med Surg Social Fam HX - Past Medical History Attestation: Yes The following information was validated with the patient. Source: patient Medical history: atrial fibrillation, CHF, diabetes, GERD, hyperlipidemia, hypertension, myocardial infarction Psychiatric history: no psych history - Past Surgical History Surgical History: cholecystectomy, pacemaker/AICD - Social History Smoking Status: Former smoker Smokeless Tobacco Status: No Alcohol use: none Drug use: none - Family History Mother Living Status: Hx Family Endocrine Disorder: Yes (diabetes) Father Living Status: Hx Family Cardiac Disorders: Yes Medications and Allergies Allopurinol [Zyloprim 100 MG] 100 mg PO BID 02/03/17 [History] Amiodarone [Cordarone] 400 mg PO QAM 02/03/17 [History] Biotin 1 mg PO DAILY 02/03/17 [History] Calcitriol [Rocaltrol] 0.25 mcg PO DAILY 02/03/17 [History] Cholecalciferol (D-3) [Vitamin D] 1,000 unit PO DAILY 02/03/17 [History] Cyanocobalamin (Vitamin B-12) [Vitamin B-12] 250 mcg PO DAILY 02/03/17 [History] Enalapril Maleate [Vasotec] 20 mg PO BID 02/03/17 [History] Furosemide [Lasix] 40 mg PO SUTUTHSA 02/03/17 [History] Metoprolol [Lopressor] 25 mg PO BID 02/03/17 [History] Omeprazole [PriLOSEC] 20 mg PO BID 02/03/17 [History] Potassium Chloride [Klor-Con 10] 10 meq PO DAILY 02/03/17 [History] Warfarin [Coumadin] 2 mg PO Q48H 02/03/17 [History] cephALEXin [Keflex] 500 mg PO BID 04/12/17 [History] 3 Allergy/AdvReac Type Severity Reaction Status Date / Time Sulfa (Sulfonamide Allergy See Verified 04/12/17 11:42 Antibiotics) Comments All Systems Review: A 10-system review of systems was performed and is negative for pertinent findings except as documented above in the HPI. - Cardiovascular Cardiovascular: as per HPI Physical Examination Vital Signs, Last 4 Hours Temp Pulse Resp BP Pulse Ox 04/13/17 11:06 98.9 F 58 16 137/80 97 General: Conversant (conversational dyspnea) HEENT: Atraumatic, Normocephaly Cardiac: Reg Rate and Rhythm, Normal S1 and S2 Lungs: Other (Coarse breath sounds throughout) Neuro: Alert and responsive Abdomen: Soft Skin: No rashes noted on visualized skin Musculoskeletal: No Chest Wall Tenderness Extremities: Other (+2 edema to knees bilaterally) Results 04/13/17 01:02 04/13/17 01:02 Lab Results 04/12/17 04/12/17 04/12/17 14:21 15:54 16:36 WBC 7.7 Hgb 11.2 L Hct 35.1 L Plt Count 125 L INR 1.5 APTT Sodium Potassium Chloride Carbon Dioxide BUN Creatinine Glucose Calcium Magnesium Troponin I 0.07 H* 04/12/17 04/12/17 04/13/17 17:34 21:42 01:02 WBC 7.1 Hgb 10.6 L Hct 34.1 L Plt Count 141 INR APTT 29.4 Sodium Potassium Chloride Carbon Dioxide BUN Creatinine Glucose Calcium Magnesium Troponin I 0.07 H* 04/13/17 04/13/17 04/13/17 01:02 01:02 03:41 WBC Hgb Hct Plt Count INR 1.5 APTT 97.3 H D Sodium 142 Potassium 2.9 L Chloride 107 Carbon Dioxide 25 BUN 10 Creatinine 0.97 Glucose 115 H Calcium 7.9 L Magnesium 1.1 L Troponin I 0.07 H* 04/13/17 04/13/17 08:36 10:11 WBC Hgb Hct Plt Count INR APTT 68.2 H Sodium Potassium Chloride Carbon Dioxide BUN Creatinine Glucose Calcium Magnesium Troponin I 0.06 H* Active Medications Acetaminophen (Tylenol) 650 mg PO Q6HR PRN PRN Reason: Mild Pain (1-3) Stop: 10/12/17 13:59 Hydrocodone Bitart/Acetaminophen (Browder 5-325 Mg) 1 tab PO Q4HR PRN PRN Reason: Moderate Pain (4-6) Stop: 10/12/17 13:59 Last Admin: 04/13/17 09:53 Dose: 1 tab Albuterol Sulfate (Proventil Neb) 2.5 mg IH Q2H PRN PRN Reason: Shortness Of Breath/Wheezing Stop: 10/12/17 14:10 Albuterol/Ipratropium (Duoneb) 3 ml IH [id number] IGOR Stop: 10/12/17 16:01 Last Admin: 04/13/17 10:30 Dose: Not Given Amiodarone HCl (Cordarone) 400 mg PO QAM IGOR Stop: 10/13/17 09:01 Last Admin: 04/13/17 07:31 Dose: 400 mg Calcitriol (Rocaltrol) 0.25 mcg PO DAILY IGOR Stop: 10/13/17 09:01 Last Admin: 04/13/17 07:31 Dose: 0.25 mcg Dextrose/Water (Dextrose 50% (Syg)) 25 ml IVP AD PRN PRN Reason: Hypoglycemia Stop: 10/12/17 15:24 Furosemide (Lasix) 40 mg IVP BIDDIURETIC IGOR Stop: 10/12/17 17:01 Last Admin: 04/13/17 07:31 Dose: 40 mg Glucagon (Glucagen) 1 mg IM ONCE PRN PRN Reason: Hypoglycemia Stop: 10/12/17 15:24 Glucose (Gluctose) 15 gm PO ONCE PRN PRN Reason: Hypoglycemia Stop: 10/12/17 15:24 Glucose (Gluctose) 30 gm PO ONCE PRN PRN Reason: Hypoglycemia Stop: 10/12/17 15:24 Heparin Sodium (Porcine) (Heparin) 5,400 unit 70 unit/kg (5400 unit) IVP Q6HR PRN PRN Reason: SEE COMMENTS Stop: 10/12/17 15:58 Last Admin: 04/12/17 18:24 Dose: 5,400 unit Heparin Sodium (Porcine) (Heparin) 2,700 unit 35 unit/kg (2700 unit) IVP Q6H PRN PRN Reason: SEE COMMENTS Stop: 10/12/17 15:58 Dextrose (Dextrose 5%) 1,000 mls @ 100 mls/hr IVC .Q10H PRN PRN Reason: HYPOGLYCEMIA Stop: 10/12/17 15:24 Heparin Sodium/Dextrose (Heparin 25,000 Unit/500 Ml D5w) 25,000 unit in 500 mls @ 21.718 mls/hr IVC .Q23H2M IGOR; 14 UNIT/KG/HR PRN Reason: Protocol Stop: 10/12/17 16:01 Last Titration: 04/13/17 09:28 Dose: 12 unit/kg/hr, 18.615 mls/hr Magnesium Sulfate 1 gm/ (Dextrose) 102 mls @ 100 mls/hr IVPB Q4H [facility] Stop: 04/13/17 22:47 Last Admin: 04/13/17 10:18 Dose: 100 mls/hr Insulin Human Lispro (Humalog) 0 units SQ HS [facility] PRN Reason: Protocol Stop: 10/12/17 21:01 Last Admin: 04/12/17 20:46 Dose: Not Given Insulin Human Lispro (Humalog) 0 units SQ TIDAC [facility] PRN Reason: Protocol Stop: 10/12/17 16:31 Last Admin: 04/13/17 12:01 Dose: Not Given Lisinopril (Zestril) 20 mg PO BID [facility] Stop: 10/12/17 21:01 Last Admin: 04/13/17 07:31 Dose: 20 mg Metoprolol Tartrate (Lopressor) 25 mg PO BID [facility] Stop: 10/12/17 21:01 Last Admin: 04/13/17 07:31 Dose: 25 mg Morphine Sulfate (Morphine Sulfate) 2 mg IVP Q4HR PRN PRN Reason: Severe Pain (7-10) Stop: 10/12/17 13:59 Last Admin: 04/13/17 12:21 Dose: 2 mg Naloxone HCl (Narcan) 0.4 mg IVP Q2MIN PRN PRN Reason: Opioid Reversal Stop: 10/12/17 13:59 Nystatin (Nystop) 1 appl TP BID IGOR Stop: 10/12/17 21:01 Last Admin: 04/13/17 09:54 Dose: 1 appl Omeprazole (Prilosec) 20 mg PO BID IGOR PRN Reason: Protocol Stop: 10/12/17 21:01 Last Admin: 04/13/17 07:31 Dose: 20 mg Ondansetron HCl (Zofran) 4 mg IVP Q8HR PRN PRN Reason: Nausea And Vomiting Stop: 10/12/17 13:59 Potassium Chloride (Potassium Chloride) 20 meq PO BIDWM IGOR Stop: 10/12/17 17:01 Last Admin: 04/13/17 07:31 Dose: 20 meq - Imaging and Cardiology Echo: report reviewed Other Results: 12 hour tele: avg HR=64 paced. - EKG Interpretation EKG results cardiology: personally reviewed Consult Discharge Plan - Plan Referrals: Lala Hernandez MD [Primary Care Provider] - <[email or web address] - Last Filed: 04/13/17 16:31> Date of Encounter: 04/13/17 Assessment and Plan Discussion w patient/family: The assessment and plan as outlined above was discussed with the patient and/or family members who expressed understanding and agreement. All questions were answered. Thank you for involving us in the care of your patient. Please call with any questions. History of Present Illness History of present illness: Ms. Rodríguez is a 71 year old female All Systems Review: A 10-system review of systems was performed and is negative for pertinent findings except as documented above in the HPI. Physical Examination Vital Signs, Last 4 Hours Resp BP Pulse Ox 04/13/17 16:16 16 137/80 97 Results 04/13/17 01:02 04/13/17 01:02 Lab Results 04/12/17 04/12/17 04/12/17 15:54 16:36 17:34 WBC 7.7 Hgb 11.2 L Hct 35.1 L Plt Count 125 L INR APTT 29.4 Sodium Potassium Chloride Carbon Dioxide BUN Creatinine Glucose Calcium Magnesium Troponin I 0.07 H* 04/12/17 04/13/17 04/13/17 21:42 01:02 01:02 WBC 7.1 Hgb 10.6 L Hct 34.1 L Plt Count 141 INR APTT Sodium 142 Potassium 2.9 L Chloride 107 Carbon Dioxide 25 BUN 10 Creatinine 0.97 Glucose 115 H Calcium 7.9 L Magnesium 1.1 L Troponin I 0.07 H* 04/13/17 04/13/17 04/13/17 01:02 03:41 08:36 WBC Hgb Hct Plt Count INR 1.5 APTT 97.3 H D 68.2 H Sodium Potassium Chloride Carbon Dioxide BUN Creatinine Glucose Calcium Magnesium Troponin I 0.07 H* 04/13/17 04/13/17 10:11 13:18 WBC Hgb Hct Plt Count INR APTT 55.8 H Sodium Potassium Chloride Carbon Dioxide BUN Creatinine Glucose Calcium Magnesium Troponin I 0.06 H* - Attending Attestation I examined this patient and my medical decision-making was reviewed with the Resident Physician. I agree with the documented findings, disposition and treatment plan. Ms. Rodríguez presents with a femur fracture after sustaining a mechanical fall. She has known systolic heart failure s/p BiV ICD with improvement of EF to 30-35 %. She has congestive signs on exam presently. A CXR and possibly other labs were done at [place] before transfer. She also has rhonchorous breath sounds on exam and admits to not feeling well over the past week. Recommend optimization of fluid status and improvement of respiratory symptoms prior to surgery. Her device was interrogated demonstrating normal function and no concerning events.
--- NOTE | 2017-04-13 17:15 | Internal Med Progress Note ---
<Saeid Lakhani - Last Filed: 04/13/17 17:12> Date of Encounter: 04/13/17 Time of Encounter: 08:15 - Assessment and plan (1) Femur fracture, left Current Visit: Yes Status: Acute Assessment and plan: 71 year old female presented with left femur fracture secondary to fall at home. She has been seen and evaluated by orthopedic surgery, cardiology is seeing the patient regarding preoperative evaluation. - Hemoglobin dropped from 11.2-10.6 likely secondary to femoral neck fracture. - CT of the pelvis and hip x-ray demonstrate left hip fracture. ECHOCARDIOGRAM: Impressions: LVEF 30-35%. Global hypokinesis. Mildly dilated left ventricle. Normal LV chamber size. Mild concentric left ventricular hypertrophy. Mild left ventricular diastolic dysfunction. Normal right ventricular structure and function. Severely dilated left atrium. Atypical septal motion consistent with paced rhythm. Mild mitral regurgitation. No evidence of pulmonary hypertension. A device lead was visualized in the right atrium and right ventricle. Compared to prior report, LVEF has improved. Plan: - May require surgical pinning, per orthopedic surgery - Cardiac evaluation clearance per cardiology. - Patient nothing by mouth after midnight for potential surgery tomorrow - We will require treatment of CHF exacerbation prior to intervention. Qualifiers: Encounter type: initial encounter Femur location: intertrochanteric Fracture type: closed Fracture alignment: displaced Qualified Code(s): S72.142A - Displaced intertrochanteric fracture of left femur, initial encounter for closed fracture (2) Systolic heart failure Current Visit: Yes Status: Acute Assessment and plan: Patient has known systolic heart failure, cardiomyopathy and is followed by cardiology in [place]. - Echocardiogram as listed above. Plan: - Maximize cardiac medications - Strict intake and output monitoring - Daily weights - Cardiac/diabetic diet when able to eat Qualifiers: Qualified Code(s): I50.20 - Unspecified systolic (congestive) heart failure (3) Anticoagulated on Coumadin Current Visit: No Status: Chronic Assessment and plan: Patient presented with therapeutic INR on Coumadin for atrial fibrillation. -INR 1.5 - We will keep subtherapeutic for surgical intervention, currently on heparin drip to prevent coagulation with severe systolic heart failure. (4) Type 2 diabetes mellitus Current Visit: No Status: Chronic Assessment and plan: Known type II diabetic, currently well controlled - Continue before meals at bedtime glucose checks - Continue low-dose sliding scale insulin Qualifiers: Diabetes mellitus complication status: with kidney complications Diabetes mellitus complication detail: with chronic kidney disease Diabetes mellitus termination clerk insulin use: unspecified residential insulin use status Chronic kidney disease stage: stage 2 (mild) Qualified Code(s): E11.22 - Type 2 diabetes mellitus with diabetic chronic kidney disease; N18.2 - Chronic kidney disease, stage 2 (mild) (5) Hypokalemia Current Visit: Yes Status: Acute Assessment and plan: Hypokalemia likely secondary to diuretic use for the treatment of systolic heart failure exacerbation Plan: - Check potassium with a.m. labs and replace as necessary. (6) Diarrhea Current Visit: Yes Status: Acute Assessment and plan: Patient presented with diarrhea from a skilled nursing after completing antibiotics. There was concern for C. difficile - C. difficile PCR pending. Qualifiers: Diarrhea type: unspecified type Qualified Code(s): R19.7 - Diarrhea, unspecified (7) Cardiomyopathy Current Visit: Yes Status: Acute Assessment and plan: As discussed above. Qualifiers: Cardiomyopathy type: unspecified Qualified Code(s): I42.9 - Cardiomyopathy , unspecified (8) DVT prophylaxis Current Visit: No Status: Acute Assessment and plan: Currently on heparin drip - Subjective Interval history: Mrs. Rodríguez 71-year-old female has been seen and evaluated patient bedside this morning. She still complains of pain in her left lower extremity secondary to fall and intertrochanteric fracture. She states that she is doing okay otherwise and does not have any numbness or tingling in her lower extremities. She has a fevers, chills, sweating, blurry had numbness, lightheadedness, dizziness, chest pain, palpitations, chest pressure or shortness of breath. She is awaiting surgical intervention if able to. 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 - Constitutional Vitals: Temp Pulse Resp BP Pulse Ox 99.9 F H 65 18 151/70 95 04/13/17 17:00 04/13/17 17:00 04/13/17 17:00 04/13/17 17:00 04/13/17 17:00 General appearance: Present: A&O X 3, answers questions appropriately Exam: General: Patient alert, awake, oriented 3, interactive, in no acute distress HEENT: Normocephalic, atraumatic, pupils equal reactive to light, nasal cavity patent , oral mucosa moist, uvula midline, neck supple trachea midline no palpable lymphadenopathy, no thyromegaly. Chest: Symmetric bilateral correlating with respiratory effort, effort nonlabored. Cardiac: Irregularly irregular heart rate and rhythm no bruits appreciated bilateral carotids, Radial pulses 2+ bilateral, posterior tibial and dorsal pedal pulses 2+ bilateral. Respiratory: Diffuse rhonchi appreciated in all lung ramsay Abdomen: Soft, nontender, positive bowel sounds, no palpable masses appreciated on examination Extremities: Bilateral lower extremity 1+ pitting edema, left lower extremity is shorter than the right, externally rotated and bent at the knee with edema of the left thigh likely secondary to injury. Neurologic: No focal deficits appreciated on examination. Face symmetric, neurovascularly intact.. Internal Medicine: Result - Labs CBC & Chem 7: 04/13/17 01:02 04/13/17 01:02 Labs: Short CBC 04/13/17 Range/Units 01:02 WBC 7.1 (4.3-11.1) K/mcL Hgb 10.6 L (11.5-15.4) g/dL Hct 34.1 L (35.3-44.9) % Plt Count 141 (140-400) K/mcL Neutrophils # 5.8 (1.6-8.9) K/mcL BMP 04/13/17 01:02 Sodium 142 Potassium 2.9 L Chloride 107 Carbon Dioxide 25 BUN 10 Creatinine 0.97 Glucose 115 H Calcium 7.9 L Cardiac Enzymes 04/12/17 04/12/17 04/13/17 Range/Units 15:54 21:42 03:41 Troponin I 0.07 H* 0.07 H* 0.07 H* (0-0.03) ng/mL 04/13/17 Range/Units 10:11 Troponin I 0.06 H* (0-0.03) ng/mL - ABG Interpretation ABG results: PT/INR, D-dimer PT 16.6 Seconds (9.4-12.1) H 04/13/17 01:02 - Impressions Impressions Hip X-Ray 04/13/17 12:36 IMPRESSION: Acute intertrochanteric fracture of left hip. D/ / Heath Bryant MD / Heath Bryant MD Interpreting Provider: Heath Bryant MD Echocardiogram 04/13/17 15:24 Impressions: LVEF 30-35%. Global hypokinesis. Mildly dilated left ventricle. Normal LV chamber size. Mild concentric left ventricular hypertrophy. Mild left ventricular diastolic dysfunction. Normal right ventricular structure and function. Severely dilated left atrium. Atypical septal motion consistent with paced rhythm. Mild mitral regurgitation. No evidence of pulmonary hypertension. A device lead was visualized in the right atrium and right ventricle. Compared to prior report, LVEF has improved. Findings: Study Quality * Technically sub-optimal due to poor echocardiographic windows. ECG Findings * Paced rhythm. Left Ventricle * LVEF 30-35%. Global hypokinesis. * Mildly dilated left ventricle. * Mild concentric left ventricular hypertrophy. * Mild left ventricular diastolic dysfunction. * Atypical septal motion consistent with paced rhythm. Right Ventricle * Normal right ventricular structure and function. Left Atrium * Severely dilated left atrium. Right Atrium * Normal right atrial size. Interatrial Septum * Interatrial septum not well evaluated. Aortic Valve * Aortic valve not well visualized. * Trileaflet aortic valve. * No aortic regurgitation. * No aortic stenosis. Mitral Valve * Normal mitral valve structure. * Mild mitral regurgitation. * No mitral stenosis. Tricuspid Valve * Normal tricuspid valve structure and function. * Trace tricuspid regurgitation. * No evidence of pulmonary hypertension. Pulmonic Valve * Pulmonic valve is not well visualized. * Trace pulmonic regurgitation. Aorta * Normally sized aortic root. Pericardium * There is a trivial pericardial effusion present. IVC * Normal IVC dimensions and inspiratory collapse. Device lead * A device lead was visualized in the right atrium and right ventricle. Pulmonary Artery * Normal visualized portions of the main pulmonary artery. Consult Discharge Plan - Plan Referrals: Lala Hernandez MD [Primary Care Provider] - <Tadeo Farmer - Last Filed: 04/13/17 19:46> Date of Encounter: 04/13/17 - Assessment and plan (1) Femur fracture, left Current Visit: Yes Status: Acute Qualifiers: Encounter type: initial encounter Femur location: intertrochanteric Fracture type: closed Fracture alignment: displaced Qualified Code(s): S72.142A - Displaced intertrochanteric fracture of left femur, initial encounter for closed fracture (2) Systolic heart failure Current Visit: Yes Status: Acute Qualifiers: Heart failure chronicity: acute on chronic Qualified Code(s): I50.23 - Acute on chronic systolic (congestive) heart failure (3) Cardiomyopathy Current Visit: Yes Status: Acute Qualifiers: Cardiomyopathy type: dilated Qualified Code(s): I42.0 - Dilated cardiomyopathy (4) Hypokalemia Current Visit: Yes Status: Acute (5) Type 2 diabetes mellitus Current Visit: No Status: Chronic Qualifiers: Diabetes mellitus complication status: with kidney complications Diabetes mellitus complication detail: with chronic kidney disease Diabetes mellitus termination clerk insulin use: unspecified residential insulin use status Chronic kidney disease stage: stage 2 (mild) Qualified Code(s): E11.22 - Type 2 diabetes mellitus with diabetic chronic kidney disease; N18.2 - Chronic kidney disease, stage 2 (mild) (6) Atrial fibrillation Current Visit: Yes Status: Chronic Qualifiers: Atrial fibrillation type: chronic Qualified Code(s): I48.2 - Chronic atrial fibrillation - Constitutional Vitals: Temp Pulse Resp BP Pulse Ox 99.9 F H 65 18 151/70 95 04/13/17 17:00 04/13/17 17:00 04/13/17 17:00 04/13/17 17:00 04/13/17 17:00 Internal Medicine: Result - Labs CBC & Chem 7: 04/13/17 01:02 04/13/17 01:02 Labs: Short CBC 04/13/17 Range/Units 01:02 WBC 7.1 (4.3-11.1) K/mcL Hgb 10.6 L (11.5-15.4) g/dL Hct 34.1 L (35.3-44.9) % Plt Count 141 (140-400) K/mcL Neutrophils # 5.8 (1.6-8.9) K/mcL BMP 04/13/17 01:02 Sodium 142 Potassium 2.9 L Chloride 107 Carbon Dioxide 25 BUN 10 Creatinine 0.97 Glucose 115 H Calcium 7.9 L Cardiac Enzymes 04/12/17 04/13/17 04/13/17 Range/Units 21:42 03:41 10:11 Troponin I 0.07 H* 0.07 H* 0.06 H* (0-0.03) ng/mL - ABG Interpretation ABG results: PT/INR, D-dimer PT 16.6 Seconds (9.4-12.1) H 04/13/17 01:02 - Impressions Impressions Hip X-Ray 04/13/17 12:36 IMPRESSION: Acute intertrochanteric fracture of left hip. D/ / Heath Bryant MD / Heath Bryant MD Interpreting Provider: Heath Bryant MD Echocardiogram 04/13/17 15:24 Impressions: LVEF 30-35%. Global hypokinesis. Mildly dilated left ventricle. Normal LV chamber size. Mild concentric left ventricular hypertrophy. Mild left ventricular diastolic dysfunction. Normal right ventricular structure and function. Severely dilated left atrium. Atypical septal motion consistent with paced rhythm. Mild mitral regurgitation. No evidence of pulmonary hypertension. A device lead was visualized in the right atrium and right ventricle. Compared to prior report, LVEF has improved. Findings: Study Quality * Technically sub-optimal due to poor echocardiographic windows. ECG Findings * Paced rhythm. Left Ventricle * LVEF 30-35%. Global hypokinesis. * Mildly dilated left ventricle. * Mild concentric left ventricular hypertrophy. * Mild left ventricular diastolic dysfunction. * Atypical septal motion consistent with paced rhythm. Right Ventricle * Normal right ventricular structure and function. Left Atrium * Severely dilated left atrium. Right Atrium * Normal right atrial size. Interatrial Septum * Interatrial septum not well evaluated. Aortic Valve * Aortic valve not well visualized. * Trileaflet aortic valve. * No aortic regurgitation. * No aortic stenosis. Mitral Valve * Normal mitral valve structure. * Mild mitral regurgitation. * No mitral stenosis. Tricuspid Valve * Normal tricuspid valve structure and function. * Trace tricuspid regurgitation. * No evidence of pulmonary hypertension. Pulmonic Valve * Pulmonic valve is not well visualized. * Trace pulmonic regurgitation. Aorta * Normally sized aortic root. Pericardium * There is a trivial pericardial effusion present. IVC * Normal IVC dimensions and inspiratory collapse. Device lead * A device lead was visualized in the right atrium and right ventricle. Pulmonary Artery * Normal visualized portions of the main pulmonary artery. - Attending Attestation I examined this patient and my medical decision-making was reviewed with the Resident Physician on 04/13/17. I agree with the documented findings, disposition and treatment plan as described except to the extent set forth below. Ms. Rodríguez is currently admitted with acute L femur fracture and CHF. She remains moderate to high risk due to potential for worsening cardiac status and issues with fracture. Ms. Rodríguez is doing OK now but had issues with dyspnea earlier. No CP. No fever or chills. Cardiology working on improving for surgery. Exam Alert. Mild distress Mucus membranes moist Heart distant Lungs with rhonchi Abd soft I/P 1. Fracture L femur 2. CHF Further diagnoses and plan as above.
[2017-04-13] MEDS: Heparin 25,000 UNIT/500 ML D5W 25,000 UNIT/500 ML MLS IVC SCH (19:20)
--- NOTE | 2017-04-13 20:03 | Anesthesia Evaluation PreOp ---
Date of Encounter: 04/13/17 Time of Encounter: 20:00 - Past History Planned Operation: Left IM Nailing Cardiac History: [place], CHF (Cardiomyopathy since 2000), HTN, Hyperlipidemia, Arrhythmia (Chronic AFib off coumadin since yesterday...will keep subtherapeutic treated with beta dang and amiodarone), Pacemaker/ICD (BiVen/ AICD seen by Cardiology, NARCISO done showed EF 30-35% global hypokinesis) Pulmonary History: Denies Any Significant HX TEXTILES PRINTER History: Denies Any Significant HX Other Medical History: Diabetes Type II Anesthesia History: No Prior Anesthetic Complications Alcohol Use: none Drug use: none Medications and Allergies Allopurinol [Zyloprim 100 MG] 100 mg PO BID 02/03/17 [History] Amiodarone [Cordarone] 400 mg PO QAM 02/03/17 [History] Biotin 1 mg PO DAILY 02/03/17 [History] Calcitriol [Rocaltrol] 0.25 mcg PO DAILY 02/03/17 [History] Cholecalciferol (D-3) [Vitamin D] 1,000 unit PO DAILY 02/03/17 [History] Cyanocobalamin (Vitamin B-12) [Vitamin B-12] 250 mcg PO DAILY 02/03/17 [History] Enalapril Maleate [Vasotec] 20 mg PO BID 02/03/17 [History] Furosemide [Lasix] 40 mg PO SUTUTHSA 02/03/17 [History] Metoprolol [Lopressor] 25 mg PO BID 02/03/17 [History] Omeprazole [PriLOSEC] 20 mg PO BID 02/03/17 [History] Potassium Chloride [Klor-Con 10] 10 meq PO DAILY 02/03/17 [History] Warfarin [Coumadin] 2 mg PO Q48H 02/03/17 [History] cephALEXin [Keflex] 500 mg PO BID 04/12/17 [History] 3 Allergy/AdvReac Type Severity Reaction Status Date / Time Sulfa (Sulfonamide Allergy See Verified 04/12/17 11:42 Antibiotics) Comments - Meds/Allergy Pre-op Review Medications Reviewed: Yes Allergies Reviewed: Yes Beta Blockers on Current Med List: Yes (Toprol XL) Anesthesia Results - Labs 04/13/17 01:02 04/13/17 01:02 Laboratory Tests 09/04/13/17 04/13/17 01:02 01:02 01:02 Hgb 10.6 L Hct 34.1 L Plt Count 141 PT 16.6 H INR 1.5 APTT Sodium 142 Potassium 2.9 L BUN 10 Creatinine 0.97 04/13/17 13:18 Hgb Hct Plt Count PT INR APTT 55.8 H Sodium Potassium BUN Creatinine - Imaging Additional studies: LVEF 30-35%, global hypokinesis Anesthesia Exam Vital Signs/O2 Sat/Glucose, Most Current Temp Pulse Resp BP Pulse Ox 04/13/17 17:00 99.9 F H 65 18 151/70 95 04/13/17 16:16 16 137/80 97 Height: 5'0 Weight: 169 lbs NPO (# of Hours): MN Pain Scale: 0 - HEENT Pupil (Motor): Pupils equal, EOMI Mallampati: II Teeth: Missing Oral Opening: Greater than 3 - TEXTILES PRINTER LOC: Oriented TEXTILES PRINTER Motor: Normal RUE, Normal LUE, Normal RLE, Normal LLE, Normal Face TEXTILES PRINTER Sensory: Normal: RUE, LUE, RLE, LLE, Face - Cardiac Rhythm: Regular Murmur: None JVD: No Carotid Bruit: No - Pulmonary Breath Sounds: bilateral Clear Respiratory Effort: Symmetrical Anesthesia Assess/Plan ASA Score: 4 (Cardiomyopathy requiring AICD, HTN DM) Modified [place] Scale for Level of Consciousness: Cooperative, oriented, and tranquil Anesthetic Plan: General Monitoring Plan: Standard Monitors, A-Line Recovery Plan: PACU (Discussed GA, agrees to proceed)
[2017-04-14] MEDS ORDERED: Heparin 25,000 UNIT/500 ML D5W 25,000 UNIT/500 ML MLS IVC SCH ×2 (01:30→23:00)
[2017-04-14] MEDS: Ipratropium/Albuterol Neb 3 ML IH SCH ×4 (03:20→22:52)
[2017-04-14 03:32] LABS: Basophils % 0.5 %; Eosinophils # 0.1 K/mcL (0.0-0.6); Eosinophils % 1.4 %; Hematocrit 31.2 % (35.3-44.9); Hemoglobin 10.1 g/dL (11.5-15.4); Immature Granulocytes % 0.4 % (0-4); Lymphocytes # 1.3 K/mcL (0.6-4.6); Lymphocytes % 17.6 %; Mean Corpuscular HGB Conc 32.4 g/dL (31.6-35.5); Mean Corpuscular Hemoglobin 29.8 pg (28.0-33.3); Mean Platelet Volume 12.1 fL (9.4-12.4); Monocytes # 0.5 K/mcL (0.0-1.3); Monocytes % 7.4 %; Neutrophils # 5.3 K/mcL (1.6-8.9); Platelet Count 123 K/mcL (140-400); Red Blood Count 3.39 M/mcL (3.82-4.97); Red Cell Distribution Width 15.4 % (11.5-14.5); Segmented Neutrophils % 72.7 %
[2017-04-14 03:48] LABS: INR 1.4; Prothrombin Time 15.1 Seconds (9.4-12.1)
[2017-04-14 03:50] LABS: Alanine Aminotransferase 47 Units/L (0-55); Albumin 2.2 g/dL (3.5-5.0); Albumin/Globulin Ratio 0.7 (1.1-2.2); Alkaline Phosphatase 93 Units/L (38-126); Aspartate Amino Transferase 54 Units/L (5-34); BUN/Creatinine Ratio 13 (6-26); Blood Urea Nitrogen 14 mg/dL (7-20); Calcium 7.9 mg/dL (8.6-10.8); Carbon Dioxide 28 mEq/L (19-29); Chloride 103 mEq/L (98-109); Globulin 3.2 g/dL (2.4-3.5); Glucose 99 mg/dL (70-99); Osmolality,Calculated 289 (280-300); Potassium 3.6 mEq/L (3.5-4.5); Sodium 139 mEq/L (136-145); Total Protein 5.4 g/dL (6.0-8.3); eGFR For African Americans > 60 (> 60); eGFR For Non-African Americans 51 (> 60)
[2017-04-14] MEDS: *HR* HYDROcodone/Acet 5/325 mg TABLET PO PRN ×2 (04:12→23:07)
--- NOTE | 2017-04-14 05:52 | Electrocardiograph Report ---
[place] [id number] Test Date: 2017-04-12 Pat Name: Andra Rodríguez Department: 114 Room: [facility] Gender: F Route Agent: [facility] : 1945 Requested By: Desiree Correa Order Number: [id number] Reading MD: Bhavin Zamora MD Measurements Intervals [place] Rate: 60 P: 73 [place]: 200 QRS: 190 QRSD: 184 T: 3 QT: 505 QTc: 505 Interpretive Statements ELECTRONIC ATRIAL PACEMAKER ELECTRONIC VENTRICULAR PACEMAKER ABNORMAL RHYTHM ECG Electronically Signed On 04-14-2017 5:50:25 EDT by Bhavin Zamora MD
[2017-04-14] MEDS: Insulin LISPRO 300 UNITS/3 ML VIAL SQ SCH ×3 (07:56→20:23)
[2017-04-14] MEDS: Nystatin POWDER 30 GM BOTTLE TP SCH ×2 (08:00→20:17)
[2017-04-14] MEDS: *HR* Amiodarone 200 MG TABLET PO SCH (08:10)
[2017-04-14] MEDS: Lisinopril 20 MG TABLET PO SCH ×2 (08:10→20:18)
[2017-04-14] MEDS: Furosemide 40 MG/4 ML VIAL IVP SCH ×2 (08:10→18:08)
[2017-04-14] MEDS ORDERED: Metoprolol XL (24 HR) Succ 50 MG TAB.ER.24H PO SCH (09:00)
--- NOTE | 2017-04-14 10:40 | Cardiology Progress Note ---
Date of Encounter: 04/14/17 Time of Encounter: 09:00 Assessment and Plan (1) Preoperative cardiovascular examination Current Visit: Yes Status: Acute Preoperative Cardiovascular examination for surgical repair of femur fracture. Patient is DNRCC-DNI. Longstanding history of systolic dysfunction, reports initially diagnosed in 2000. Reports NYHA class II-III symptoms. Per patient, reportedly nonischemic in etiology, follows with outside Creative Technologist. Troponin 0.07 x3, 0.06--flat and adynamic; non-diagnostic. Likely secondary to demand ischemia, patient denies chest pain. Hx of BiV-ICD, reports last generator change/upgrade 3 years ago. Volume overload improved. 24 I&O: -2813 mL. Agree with IV diuresis. TTE today shows LVEF 30-35% with mild MR, which is improved from prior report of 10-15% with severe MR in September 2013. Device check 04/13/17 demonstrated normal functioning BiV-ICD without events. Acceptable to hold coumadin (Afib) in the song-operative period and restart when able. Bridging with heparin not necessary. She is a intermediate surgical risk candidate for orthopedic surgery given hx of cardiomyopathy. Avoid fluid challenges in the post-operative setting if able. Discussed and reviewed with Dr. Price who agrees with plan as stated above. (2) Cardiomyopathy Current Visit: Yes Status: Acute Suspect non-ischemic in etiology per reports; request records. Continue Toprol XL and ACEi. Agree with IV diuresis. Monitor electrolytes closely, Mag replaced with IVPB this AM. Strict I&O's, daily weights, Na/fluid restriction diet. Recommend betablocker in the song-operative period. Qualifiers: Cardiomyopathy type: dilated Qualified Code(s): I42.0 - Dilated cardiomyopathy (3) Atrial fibrillation Current Visit: Yes Status: Chronic Reports history of afib on amiodarone for rhythm control and coumadin for anticoagulation. Qualifiers: Atrial fibrillation type: chronic Qualified Code(s): I48.2 - Chronic atrial fibrillation Discussion w patient/family: The assessment and plan as outlined above was discussed with the patient and/or family members who expressed understanding and agreement. All questions were answered. Thank you for involving us in the care of your patient. Please call with any questions. The patient will be discussed and reviewed with Dr. Price; Cardiology will sign- off, please call with questions. Recommend close outpatient follow-up with outside Creative Technologist. Subjective Principal diagnosis: Pre-operative; NICMP Interval history: Seen and examined earlier this AM. Reports feels much better today; LE edema and shortness of breath improved. Objective Vital Signs, Last 4 Hours Temp Pulse Resp BP Pulse Ox 04/14/17 06:43 98.3 F 60 18 126/68 98 Results 04/14/17 02:35 04/14/17 02:35 Lab Results 04/13/17 04/13/17 04/13/17 10:11 13:18 20:21 WBC Hgb Hct Plt Count INR APTT 55.8 H 79.4 H Sodium Potassium Chloride Carbon Dioxide BUN Creatinine Glucose Calcium Total Bilirubin AST ALT Alkaline Phosphatase Troponin I 0.06 H* 04/14/17 04/14/17 04/14/17 02:35 02:35 02:35 WBC 7.3 Hgb 10.1 L Hct 31.2 L Plt Count 123 L INR 1.4 APTT Sodium 139 Potassium 3.6 Chloride 103 Carbon Dioxide 28 BUN 14 Creatinine 1.06 Glucose 99 Calcium 7.9 L Total Bilirubin 1.0 AST 54 H ALT 47 Alkaline Phosphatase 93 Troponin I Active Medications Acetaminophen (Tylenol) 650 mg PO Q6HR PRN PRN Reason: Mild Pain (1-3) Stop: 10/12/17 13:59 Hydrocodone Bitart/Acetaminophen ([place] 5-325 Mg) 1 tab PO Q4HR PRN PRN Reason: Moderate Pain (4-6) Stop: 10/12/17 13:59 Last Admin: 04/14/17 04:12 Dose: 1 tab Albuterol Sulfate (Proventil Neb) 2.5 mg IH Q2H PRN PRN Reason: Shortness Of Breath/Wheezing Stop: 10/12/17 14:10 Albuterol/Ipratropium (Duoneb) 3 ml IH [id number] IGOR Stop: 10/12/17 16:01 Last Admin: 04/14/17 03:20 Dose: 3 ml Amiodarone HCl (Cordarone) 400 mg PO QAM [facility] Stop: 10/13/17 09:01 Last Admin: 04/14/17 08:10 Dose: 400 mg Calcitriol (Rocaltrol) 0.25 mcg PO DAILY [facility] Stop: 10/13/17 09:01 Last Admin: 04/14/17 07:58 Dose: Not Given Dextrose/Water (Dextrose 50% (Syg)) 25 ml IVP AD PRN PRN Reason: Hypoglycemia Stop: 10/12/17 15:24 Furosemide (Lasix) 40 mg IVP BIDDIURETIC [facility] Stop: 10/12/17 17:01 Last Admin: 04/14/17 08:10 Dose: 40 mg Glucagon (Glucagen) 1 mg IM ONCE PRN PRN Reason: Hypoglycemia Stop: 10/12/17 15:24 Glucose (Gluctose) 15 gm PO ONCE PRN PRN Reason: Hypoglycemia Stop: 10/12/17 15:24 Glucose (Gluctose) 30 gm PO ONCE PRN PRN Reason: Hypoglycemia Stop: 10/12/17 15:24 Heparin Sodium (Porcine) (Heparin) 5,400 unit 70 unit/kg (5400 unit) IVP Q6HR PRN PRN Reason: SEE COMMENTS Stop: 10/12/17 15:58 Last Admin: 04/12/17 18:24 Dose: 5,400 unit Heparin Sodium (Porcine) (Heparin) 2,700 unit 35 unit/kg (2700 unit) IVP Q6H PRN PRN Reason: SEE COMMENTS Stop: 10/12/17 15:58 Last Admin: 04/13/17 14:27 Dose: 2,700 unit Dextrose (Dextrose 5%) 1,000 mls @ 100 mls/hr IVC .Q10H PRN PRN Reason: HYPOGLYCEMIA Stop: 10/12/17 15:24 Insulin Human Lispro (Humalog) 0 units SQ HS [facility] PRN Reason: Protocol Stop: 10/12/17 21:01 Last Admin: 04/13/17 21:53 Dose: Not Given Insulin Human Lispro (Humalog) 0 units SQ TIDAC IGOR PRN Reason: Protocol Stop: 10/12/17 16:31 Last Admin: 04/14/17 07:56 Dose: Not Given Lisinopril (Zestril) 20 mg PO BID [facility] Stop: 10/12/17 21:01 Last Admin: 04/14/17 08:10 Dose: 20 mg Metoprolol Succinate (Toprol Xl) 50 mg PO DAILY [facility] Stop: 10/14/17 09:01 Last Admin: 04/14/17 08:10 Dose: 50 mg Morphine Sulfate (Morphine Sulfate) 2 mg IVP Q4HR PRN PRN Reason: Severe Pain (7-10) Stop: 10/12/17 13:59 Last Admin: 04/13/17 23:20 Dose: 2 mg Naloxone HCl (Narcan) 0.4 mg IVP Q2MIN PRN PRN Reason: Opioid Reversal Stop: 10/12/17 13:59 Nystatin (Nystop) 1 appl TP BID [facility] Stop: 10/12/17 21:01 Last Admin: 04/13/17 21:55 Dose: 1 appl Omeprazole (Prilosec) 20 mg PO BID IGOR PRN Reason: Protocol Stop: 10/12/17 21:01 Last Admin: 04/14/17 08:10 Dose: 20 mg Ondansetron HCl (Zofran) 4 mg IVP Q8HR PRN PRN Reason: Nausea And Vomiting Stop: 10/12/17 13:59 Potassium Chloride (Potassium Chloride) 20 meq PO BIDWM [facility] Stop: 10/12/17 17:01 Last Admin: 04/14/17 08:10 Dose: 20 meq - Imaging and Cardiology Echo: report reviewed Other Results: 12 hour tele: avg HR=62 paced. - EKG Interpretation EKG results cardiology: personally reviewed Consult Discharge Plan - Plan Referrals: Lala Hernandez MD [Primary Care Provider] -
--- NOTE | 2017-04-14 12:05 | Internal Med Progress Note ---
Date of Encounter: 04/14/17 Time of Encounter: 11:45 - Assessment and plan (1) Intertrochanteric fracture of left hip Current Visit: Yes Status: Acute Assessment and plan: Patient noted to have left hip fracture secondary to mechanical fall. Orthopedic surgery on board, plan for intramedullary nail fixation. Patient is cleared by cardiology with intermediate perioperative risk. Continue pain control. Monitor closely for volume overload during postoperative volume resuscitation. Qualifiers: Encounter type: subsequent encounter Fracture type: closed Fracture alignment: displaced Fracture healing: with routine healing Qualified Code(s ): S72.142D - Displaced intertrochanteric fracture of left femur, subsequent encounter for closed fracture with routine healing (2) CHF (congestive heart failure) Current Visit: Yes Status: Acute Assessment and plan: Had mild acute exacerbation of CHF and volume overload at admission. Continue IV Lasix for now, noted to have appropriate urine output with that negative fluid balance. Continue beta dang. Hold IV hydration for now. ICD device check has been completed, noted to be functioning well. Echocardiogram shows severely reduced ejection fraction 30-35%, mild left ventricular diastolic dysfunction, mild concentric LVH, severe left atrial dilation, mild pulmonary hypertension. Telemetry monitoring. Qualifiers: Congestive heart failure type: combined Congestive heart failure chronicity : acute on chronic Qualified Code(s): I50.43 - Acute on chronic combined systolic (congestive) and diastolic (congestive) heart failure (3) Hypomagnesemia Current Visit: Yes Status: Acute Assessment and plan: Secondary to diuretics. Supplement with IV magnesium sulfate, recheck magnesium. (4) ICD (implantable cardioverter-defibrillator) in place Current Visit: Yes Status: Chronic (5) CKD (chronic kidney disease) Current Visit: Yes Status: Chronic Assessment and plan: Serum creatinine currently stable. Patient does require IV Lasix at this time. Continue to monitor renal function closely. Qualifiers: Chronic kidney disease stage: stage 3 (moderate) Qualified Code(s): N18.3 - Chronic kidney disease, stage 3 (moderate) (6) Type 2 diabetes mellitus Current Visit: Yes Status: Chronic Assessment and plan: Accu-Chek blood glucose monitoring with sliding scale insulin as needed. Diabetic diet. Blood sugars noted to be well controlled. Qualifiers: Diabetes mellitus complication status: with kidney complications Diabetes mellitus complication detail: with chronic kidney disease Diabetes mellitus penitentiary insulin use: without termite technician use Chronic kidney disease stage: stage 3 (moderate) Qualified Code(s): E11.22 - Type 2 diabetes mellitus with diabetic chronic kidney disease; N18.3 - Chronic kidney disease, stage 3 ( moderate) (7) Atrial fibrillation Current Visit: Yes Status: Chronic Assessment and plan: Currently rate controlled. Coumadin has been held for surgery. No need for bridging anticoagulation. Qualifiers: Atrial fibrillation type: chronic Qualified Code(s): I48.2 - Chronic atrial fibrillation (8) Coronary artery disease Current Visit: Yes Status: Chronic Qualifiers: Coronary Disease-Associated Artery/Lesion type: [place] artery [place] vs. transplanted heart: [place] heart Associated angina: without angina Qualified Code(s): I25.10 - Atherosclerotic heart disease of [place] coronary artery without angina pectoris - Subjective Interval history: Reports left hip pain on movement; no chest pain, dyspnea but does have moist cough; no fever/chills; awaiting surgery for hip fracture this afternoon; - Constitutional Vitals: Temp Pulse Resp BP Pulse Ox 98.3 F 63 18 125/68 95 04/14/17 11:26 04/14/17 11:26 04/14/17 11:26 04/14/17 11:26 04/14/17 11:26 General appearance: Present: A&O X 3, answers questions appropriately - Respiratory Respiratory exam: Present: CTAB, rales (left basal crackles). Absent: accessory muscle use, rhonchi, wheezes - Cardiovascular Cardiovascular exam: Present: irregular rhythm, +S1, +S2. Absent: diastolic murmur, gallop, rubs, systolic murmur - GI/Abdominal GI/Abdominal exam: Present: normal bowel sounds, soft, no peritoneal signs. Absent: distended, tenderness - Extremities Exam Extremities exam: Present: full ROM (restricted in left LE), pedal edema, warm, radial pulses palpable and symmetrical. Absent: calf tenderness, cyanotic Additional comments: left LE noted to be in abduction and external rotation - Neurological Exam Neurological exam: Present: CN II-XII intact, oriented X3, no focal deficits. Absent: pronater drift, facial droop, speech deficit - Skin Skin exam: Present: dry, intact Internal Medicine: Result - Labs CBC & Chem 7: 04/16/17 01:19 04/16/17 01:19 Labs: Short CBC 04/14/17 Range/Units 02:35 WBC 7.3 (4.3-11.1) K/mcL Hgb 10.1 L (11.5-15.4) g/dL Hct 31.2 L (35.3-44.9) % Plt Count 123 L (140-400) K/mcL Neutrophils # 5.3 (1.6-8.9) K/mcL BMP 04/14/17 02:35 Sodium 139 Potassium 3.6 Chloride 103 Carbon Dioxide 28 BUN 14 Creatinine 1.06 Glucose 99 Calcium 7.9 L Liver Function 04/14/17 Range/Units 02:35 Total Bilirubin 1.0 (0.2-1.2) mg/dL AST 54 H (5-34) Units/L ALT 47 (0-55) Units/L Alkaline Phosphatase 93 (38-126) Units/L Albumin 2.2 L (3.5-5.0) g/dL - ABG Interpretation ABG results: PT/INR, D-dimer PT 15.1 Seconds (9.4-12.1) H 04/14/17 02:35 - Impressions Impressions Hip X-Ray 04/13/17 12:36 IMPRESSION: Acute intertrochanteric fracture of left hip. D/ / Heath Bryant MD / Heath Bryant MD Interpreting Provider: Heath Bryant MD Echocardiogram 04/13/17 15:24 Impressions: LVEF 30-35%. Global hypokinesis. Mildly dilated left ventricle. Normal LV chamber size. Mild concentric left ventricular hypertrophy. Mild left ventricular diastolic dysfunction. Normal right ventricular structure and function. Severely dilated left atrium. Atypical septal motion consistent with paced rhythm. Mild mitral regurgitation. No evidence of pulmonary hypertension. A device lead was visualized in the right atrium and right ventricle. Compared to prior report, LVEF has improved. Findings: Study Quality * Technically sub-optimal due to poor echocardiographic windows. ECG Findings * Paced rhythm. Left Ventricle * LVEF 30-35%. Global hypokinesis. * Mildly dilated left ventricle. * Mild concentric left ventricular hypertrophy. * Mild left ventricular diastolic dysfunction. * Atypical septal motion consistent with paced rhythm. Right Ventricle * Normal right ventricular structure and function. Left Atrium * Severely dilated left atrium. Right Atrium * Normal right atrial size. Interatrial Septum * Interatrial septum not well evaluated. Aortic Valve * Aortic valve not well visualized. * Trileaflet aortic valve. * No aortic regurgitation. * No aortic stenosis. Mitral Valve * Normal mitral valve structure. * Mild mitral regurgitation. * No mitral stenosis. Tricuspid Valve * Normal tricuspid valve structure and function. * Trace tricuspid regurgitation. * No evidence of pulmonary hypertension. Pulmonic Valve * Pulmonic valve is not well visualized. * Trace pulmonic regurgitation. Aorta * Normally sized aortic root. Pericardium * There is a trivial pericardial effusion present. IVC * Normal IVC dimensions and inspiratory collapse. Device lead * A device lead was visualized in the right atrium and right ventricle. Pulmonary Artery * Normal visualized portions of the main pulmonary artery. Consult Discharge Plan - Plan Referrals: Merlene Juan PAC [Physician Body Man] - 04/29/17 11:30 am Lala Hernandez MD [Primary Care Provider] - Otoniel Gutiérrez MD [Partnered Physician] - 05/27/17 11:00 am Prescriptions: HYDROcodone/Acet 5/325 mg [[place] 5-325 mg] 1 tab PO Q4HR PRN #15 tablet PRN Reason: Pain
[2017-04-14] MEDS ORDERED: *HR* FentaNYL (PF) 100 MCG/2 ML VIAL ONE ×2 (12:06→15:01)
[2017-04-14] MEDS ORDERED: Lidocaine -MPF 2% 2 ML VIAL ONE (12:06)
[2017-04-14] MEDS ORDERED: Dexamethasone 4 MG/ML VIAL ONE (12:06)
[2017-04-14] MEDS ORDERED: Lidocaine -MPF 4% 5 ML AMPUL ONE (12:06)
[2017-04-14] MEDS ORDERED: *HR* Propofol 200 MG/20 ML VIAL IVP ONE (12:06)
[2017-04-14] MEDS ORDERED: Ondansetron 4 MG/2 ML VIAL ONE (12:06)
[2017-04-14] MEDS ORDERED: Acetaminophen IV 1,000 MG/100 ML INFUS..BTL ONE (13:41)
[2017-04-14] MEDS ORDERED: *HR* Etomidate 40 MG/20 ML VIAL IVP ONE (14:12)
[2017-04-14] MEDS ORDERED: EPHEDrine 50 MG/ML VIAL ONE (14:52)
[2017-04-14] MEDS ORDERED: *HR* HYDROmorphone 2 MG/ML SYRINGE ONE (14:54)
--- NOTE | 2017-04-14 15:41 | Operative Note ---
Date of procedure: 04/14/17 Pre-op diagnosis: Left hip fracture, basicervical Post-op diagnosis: same Procedure: Left hip intramedullary nailing Implants: [employer] TFN Complications: none Anesthesia: MARTYA Surgeon: Otoniel Gutiérrez Estimated blood loss (cc): 150 Specimen: 0 Condition: stable Disposition: PACU Procedure in Detail: The patient received IV antibiotics in the holding area. She was brought to the operating room, sign in was performed. The patient underwent general anesthesia on the hospital bed. She was then transferred to the fracture table in supine position. The patient was positioned with the support groin post, the affected left lower extremity in the traction courtney and the contralateral lower extremity in a well-padded limb courtney with a hip flexed and abducted out of the way. Fluoroscopy was then brought in, the fractures visualized, and the fracture reduced. We checked on AP and true lateral view of the hip. Once satisfactory the left hip, from the pelvis down to the knee, was prepped and draped in usual sterile fashion. A timeout was performed. The level of the greater trochanter was palpated, a 6-8 cm oblique incision was made just proximally, , followed by Bovie dissection. The hip abductor was sharply split in line with its fibers with a curved Gray scissors. The tip of the greater trochanter was palpable. A curved awl was then positioned on the tip. Its position was checked on fluoroscopy, slightly advanced, and we checked the lateral view. Once appropriately positioned, the aggressive awl was then used to open the proximal femur down to level of the lesser trochanter. A short Trochanteric Femoral Nail Advanced with 130 degree neck angle, 11 mm diameter, was assembled, and appropriately inserted into the proximal femur. The appropriate level was checked under fluoroscopy. The triple trochars of 130 degree neck angle was then positioned against the skin, checking fluoroscopy for positioning. Once satisfactory a 2.5 cm incision was made, the fascia was bluntly split along with the muscle fibers of the vastus lateralis. The triple trocar was advanced up against the lateral cortex. The guidepin was then driven up into the femoral head, checking AP and lateral views. The wire was adjusted as needed. A 100 mm long helical blade was chosen. Overdrilled the guidewire, and the helical blade was tapped in place over the guidewire in standard technique. Once close to the edge of the femoral head, the setscrew was then screwed down. Traction was then taken off the leg, and the fracture compressed. The triple trochars for the distal static locking screw were placed in the jig, the second incision was extended 1 cm distally. The trochars were advanced to the cortex, and drilled across. The depth was measured and a the 34 mm long by 5 mm bicortical screw was placed. All trochars and jig were removed. Final fluoroscopy shots were taken and saved showing good AP and lateral views of the hip and also distally at the tip of the nail. The wounds were irrigated with normal saline. Fascia over the abductors was closed with 0 Vicryl [id number] stitches, including the deep subcutaneous fat layer. Subcutaneous tissues were closed with 2-0 Vicryl, and the skin incisions were closed with roger. Sterile dressings were applied. The patient was transferred to hospital bed where she was extubated and taken to recovery room in stable condition.
--- NOTE | 2017-04-14 16:18 | Anesthesia Evaluation Post Op ---
Date of Encounter: 04/14/17 Time of Encounter: 16:16 - Vital Signs Vital Signs: Vital Signs/O2 Sat, Most Current Temp Pulse Resp BP Pulse Ox 98.4 F 61 16 135/53 95 04/14/17 15:50 04/14/17 16:10 04/14/17 16:10 04/14/17 16:10 04/14/17 16:10 - Lungs Lungs: Clear Ascult./Percussion - Airway Airway: Non-obstructed - Cardiovascular Regular Rate - Mental Status Mental Status: Alert & Oriented, Answers Appropriately - Pain Pain Scale: 2 Pain Scale used: Numeric (1 - 10) - Nausea Vomiting Nausea Vomiting: Not Present - Hydration Hydration: NPO, Morel catheter - Discharge PostOp Status: Transfer Patient to floor
[2017-04-14] MEDS ORDERED: Ondansetron 4 MG/2 ML VIAL IVP PRN (16:31)
[2017-04-14] MEDS ORDERED: Dextrose Gel 15 GM PO PRN ×2 (16:31)
[2017-04-14] MEDS ORDERED: D5% in Water 1,000 ML IVC PRN (16:31)
[2017-04-14] MEDS ORDERED: Naloxone 0.4 MG/ML INJ IVP PRN ×2 (16:31)
[2017-04-14] MEDS ORDERED: Acetaminophen 325 MG TABLET PO PRN (16:31)
[2017-04-14] MEDS ORDERED: *HR* Morphine 2 MG/ML SYRINGE IVP PRN (16:31)
[2017-04-14] MEDS ORDERED: *HR* Dextrose 50 % in Water (Syg) 50 ML SYRINGE IVP PRN (16:31)
[2017-04-14] MEDS ORDERED: Sennosides 8.6 MG TABLET PO PRN (16:31)
[2017-04-14] MEDS ORDERED: ceFAZolin 2,000 MG in D5% in Water 100 ML IVPB SCH (16:31)
[2017-04-14] MEDS ORDERED: Albuterol 2.5 MG/3 ML NEBULIZER IH PRN (16:31)
[2017-04-14] MEDS: 0.9 % Sodium Chloride 1,000 ML IVC SCH (18:08)
[2017-04-14] MEDS: *HR* Heparin 5,000 UNIT/ML VIAL SQ SCH (20:16)
[2017-04-14] MEDS: ceFAZolin 2,000 MG in D5% in Water 100 ML IVPB SCH (23:07)
[2017-04-15] MEDS: Ipratropium/Albuterol Neb 3 ML IH SCH ×4 (03:30→22:08)
[2017-04-15] MEDS: *HR* Heparin 5,000 UNIT/ML VIAL SQ SCH ×2 (06:00→16:52)
[2017-04-15] MEDS: *HR* HYDROcodone/Acet 5/325 mg TABLET PO PRN ×4 (06:01→20:45)
[2017-04-15] MEDS: ceFAZolin 2,000 MG in D5% in Water 100 ML IVPB SCH (06:02)
[2017-04-15] MEDS ORDERED: *HR* Warfarin 3 MG TABLET PO STA (06:34)
[2017-04-15 06:50] LABS: INR 1.3; Prothrombin Time 13.9 Seconds (9.4-12.1)
[2017-04-15 06:53] LABS: Activated Partial Thrombo Time 29.6 Seconds (26.0-36.0)
[2017-04-15 06:55] LABS: Calcium 8.1 mg/dL (8.6-10.8); Potassium 3.9 mEq/L (3.5-4.5)
[2017-04-15 07:04] LABS: Basophils % 0.2 %; Hematocrit 30.8 % (35.3-44.9); Hemoglobin 9.7 g/dL (11.5-15.4); Immature Granulocytes % 0.7 % (0-4); Lymphocytes # 0.4 K/mcL (0.6-4.6); Lymphocytes % 6.7 %; Mean Corpuscular HGB Conc 31.5 g/dL (31.6-35.5); Mean Corpuscular Hemoglobin 29.7 pg (28.0-33.3); Mean Corpuscular Volume 94.2 fL (83.0-100.0); Mean Platelet Volume 13.5 fL (9.4-12.4); Monocytes # 0.4 K/mcL (0.0-1.3); Monocytes % 5.7 %; Neutrophils # 5.3 K/mcL (1.6-8.9); Platelet Count 124 K/mcL (140-400); Red Blood Count 3.27 M/mcL (3.82-4.97); Red Cell Distribution Width 15.5 % (11.5-14.5); Segmented Neutrophils % 86.7 %
[2017-04-15] MEDS: Lisinopril 20 MG TABLET PO SCH ×2 (07:35→20:46)
[2017-04-15] MEDS: Insulin LISPRO 300 UNITS/3 ML VIAL SQ SCH ×4 (07:38→20:46)
[2017-04-15] MEDS: Furosemide 40 MG/4 ML VIAL IVP SCH (07:44)
[2017-04-15] MEDS: Metoprolol XL (24 HR) Succ 50 MG TAB.ER.24H PO SCH (07:44)
[2017-04-15] MEDS: 0.9 % Sodium Chloride 1,000 ML IVC SCH (07:45)
[2017-04-15] MEDS: *HR* Amiodarone 200 MG TABLET PO SCH (07:45)
[2017-04-15] MEDS: Nystatin POWDER 30 GM BOTTLE TP SCH ×2 (09:45→20:47)
--- NOTE | 2017-04-15 12:16 | Event Note ---
Date of Encounter: 04/15/17 Time of Encounter: 13:00 PCR -Left Hip Fracture - Left hip intramedullary nailing 04/14/17 Dr. Gutiérrez POD#1 Patient seen at bedside. Labs: H/H stable -WBC wnl, Renal function declined slightly today. Pain control: adequate Participating in PT. All questions and concerns addressed. Educated on use of incentive spirometer, ambulation, and hydration. Patient educated on post-operative restrictions and care. Addressed: patient on contact precautions D/C plan:. CARMEN rodriguez
[2017-04-15] MEDS: Furosemide 20 MG/2 ML VIAL IVP SCH (16:46)
[2017-04-15] MEDS ORDERED: *HR* Warfarin 4 MG TABLET PO SCH (18:00)
[2017-04-15] MEDS ORDERED: Warfarin perPT PO PRN (18:54)
[2017-04-15] MEDS ORDERED: *HR* Heparin 5,000 UNIT/ML VIAL SQ SCH (23:00)
[2017-04-16 01:51] LABS: INR 1.6; Prothrombin Time 16.9 Seconds (9.4-12.1)
[2017-04-16 01:52] LABS: Basophils % 0.1 %; Eosinophils # 0.2 K/mcL (0.0-0.6); Eosinophils % 2.2 %; Hematocrit 27.4 % (35.3-44.9); Hemoglobin 8.8 g/dL (11.5-15.4); Immature Granulocytes % 0.4 % (0-4); Lymphocytes # 0.8 K/mcL (0.6-4.6); Lymphocytes % 11.9 %; Mean Corpuscular HGB Conc 32.1 g/dL (31.6-35.5); Mean Corpuscular Volume 93.5 fL (83.0-100.0); Mean Platelet Volume 13.2 fL (9.4-12.4); Monocytes # 0.4 K/mcL (0.0-1.3); Monocytes % 5.7 %; Neutrophils # 5.5 K/mcL (1.6-8.9); Platelet Count 141 K/mcL (140-400); Red Blood Count 2.93 M/mcL (3.82-4.97); Red Cell Distribution Width 15.6 % (11.5-14.5); Segmented Neutrophils % 79.7 %
[2017-04-16 01:58] LABS: Calcium 7.9 mg/dL (8.6-10.8); Potassium 4.3 mEq/L (3.5-4.5)
[2017-04-16] MEDS: Ipratropium/Albuterol Neb 3 ML IH SCH ×3 (04:36→15:47)
[2017-04-16] MEDS: *HR* HYDROcodone/Acet 5/325 mg TABLET PO PRN ×2 (06:52→14:47)
[2017-04-16] MEDS: *HR* Heparin 5,000 UNIT/ML VIAL SQ SCH ×2 (06:53→18:08)
[2017-04-16] MEDS: Insulin LISPRO 300 UNITS/3 ML VIAL SQ SCH ×3 (07:55→17:18)
[2017-04-16] MEDS: *HR* Amiodarone 200 MG TABLET PO SCH (08:46)
[2017-04-16] MEDS: Furosemide 20 MG/2 ML VIAL IVP SCH ×2 (08:46→17:18)
[2017-04-16] MEDS: Metoprolol XL (24 HR) Succ 50 MG TAB.ER.24H PO SCH (08:47)
[2017-04-16] MEDS: Lisinopril 20 MG TABLET PO SCH (08:47)
--- NOTE | 2017-04-16 16:29 | Orthopedics Progress Note ---
Date of Encounter: 04/16/17 Time of Encounter: 16:26 - Assessment and Plan (1) Intertrochanteric fracture of left hip Current Visit: Yes Status: Acute POD # 2 s/p L hip nail Encourage ambulation OT/PT exercises DVT prophylaxis Decub prevention D/c to Rehab when med cleared WBAT f/u with Merlene Juan in 2 weeks Qualifiers: Encounter type: subsequent encounter Fracture type: closed Fracture alignment: displaced Fracture healing: with routine healing Qualified Code(s ): S72.142D - Displaced intertrochanteric fracture of left femur, subsequent encounter for closed fracture with routine healing Subjective Principal diagnosis: POD # 2 Interval history: Pt feels weak did exercises in bed but did not ambulate L hip: drsgs c/d/i B ca;lves are soft/nt NVID Objective Vital signs: Vital Signs Temp Pulse Resp BP Pulse Ox 04/16/17 15:47 16 98 04/16/17 11:11 17 98 04/16/17 11:06 99.5 F 59 16 125/70 93 04/16/17 07:21 98.6 F 63 16 146/72 97 04/16/17 04:33 16 95 04/16/17 03:59 98.7 F 60 18 149/70 94 04/15/17 23:01 98.8 F 72 19 147/82 96 04/15/17 22:08 16 92 04/15/17 18:37 98.8 F 62 19 136/59 95 Intake and Output 04/16/17 04/16/17 04/16/17 07:59 15:59 23:59 Intake Total 360 / 360 480 / 480 Output Total 450 / 450 Balance -90 / -90 480 / 480 Intake: Oral 360 / 360 480 / 480 Output: Straight Cath 450 / 450 Other: Meal Lunch Percent of Meal Consumed 75% Blood Glucose* 76 99 Incision: clean and dry - Labs CBC & BMP: 04/16/17 01:19 04/16/17 01:19 Labs: Abnormal lab results RBC 2.93 M/mcL (3.82-4.97) L 04/16/17 01:19 Hgb 8.8 g/dL (11.5-15.4) L 04/16/17 01:19 Hct 27.4 % (35.3-44.9) L 04/16/17 01:19 RDW 15.6 % (11.5-14.5) H 04/16/17 01:19 MPV 13.2 fL (9.4-12.4) H 04/16/17 01:19 PT 16.9 Seconds (9.4-12.1) H 04/16/17 01:19 BUN 30 mg/dL (7-20) H 04/16/17 01:19 Creatinine 1.25 mg/dL (0.57-1.11) H 04/16/17 01:19 Est GFR ( Amer) 51 (> 60) L 04/16/17 01:19 Est GFR (Non-Af Amer) 42 (> 60) L 04/16/17 01:19 POC Glucose 115 (58-89) H 04/15/17 20:43 Calcium 7.9 mg/dL (8.6-10.8) L 04/16/17 01:19 AST 54 Units/L (5-34) H 04/14/17 02:35 Troponin I 0.06 ng/mL (0-0.03) H* 04/13/17 10:11 Serum Total Protein 5.4 g/dL (6.0-8.3) L 04/14/17 02:35 Albumin 2.2 g/dL (3.5-5.0) L 04/14/17 02:35 Albumin/Globulin Ratio 0.7 (1.1-2.2) L 04/14/17 02:35 - VTE Documentation of Mechanical Device: Intermittent pneumatic compression device Consult Discharge Plan - Plan Referrals: Merlene Juan, PAC [Physician Block Paver] - 04/29/17 11:30 am Lala Hernandez MD [Primary Care Provider] - Otoniel Gutiérrez MD [Partnered Physician] - 05/27/17 11:00 am
[2017-04-16 16:39] VITALS: BP 139/67
--- NOTE | 2017-04-16 17:00 | Internal Med Progress Note ---
Date of Encounter: 04/15/17 Time of Encounter: 16:00 - Assessment and plan (1) Intertrochanteric fracture of left hip Status: Acute Assessment and plan: Patient noted to have left hip fracture secondary to mechanical fall. Orthopedic surgery on board, status post left hip intramedullary nail fixation, postoperative day 1. Noted to have slight drop in hemoglobin, 9.7 today. Continue to monitor. Continue pain control. Monitor closely for volume overload during postoperative volume resuscitation-we will hold IV fluids. Physical and occupational therapy evaluation noted, recommend placement in inpatient rehabilitation. surgical services tech on board. Qualifiers: Encounter type: subsequent encounter Fracture type: closed Fracture alignment: displaced Fracture healing: with routine healing Qualified Code(s ): S72.142D - Displaced intertrochanteric fracture of left femur, subsequent encounter for closed fracture with routine healing (2) Combined systolic and diastolic heart failure Status: Acute Assessment and plan: Had mild acute exacerbation of CHF and volume overload at admission. Slowly improving. We will decrease dose of IV Lasix. Discontinue Morel catheter. Continue beta dang. Telemetry monitoring. Qualifiers: Heart failure chronicity: acute on chronic Qualified Code(s): I50.43 - Acute on chronic combined systolic (congestive) and diastolic (congestive) heart failure (3) Hypomagnesemia Status: Resolved Assessment and plan: Improved with magnesium sulfate supplements. (4) ICD (implantable cardioverter-defibrillator) in place Status: Chronic (5) CKD (chronic kidney disease) Status: Chronic Assessment and plan: Serum creatinine currently stable, noted to be slightly elevated, likely due to the use of IV diuretics. Patient does require IV Lasix at this time. Continue to monitor renal function closely. Qualifiers: Chronic kidney disease stage: stage 3 (moderate) Qualified Code(s): N18.3 - Chronic kidney disease, stage 3 (moderate) (6) Type 2 diabetes mellitus Status: Chronic Assessment and plan: Accu-Chek blood glucose monitoring with sliding scale insulin as needed. Diabetic diet. Blood sugars noted to be well controlled. Qualifiers: Diabetes mellitus complication status: with kidney complications Diabetes mellitus complication detail: with chronic kidney disease Diabetes mellitus longterm insulin use: without longterm use Chronic kidney disease stage: stage 3 (moderate) Qualified Code(s): E11.22 - Type 2 diabetes mellitus with diabetic chronic kidney disease; N18.3 - Chronic kidney disease, stage 3 ( moderate) (7) Atrial fibrillation Status: Chronic Assessment and plan: Currently rate controlled. Coumadin has been restarted after surgery. INR noted to be 1.3 today, continue to monitor. Qualifiers: Atrial fibrillation type: chronic Qualified Code(s): I48.2 - Chronic atrial fibrillation (8) Coronary artery disease Status: Chronic Qualifiers: Coronary Disease-Associated Artery/Lesion type: [place] artery [place] vs. transplanted heart: [place] heart Associated angina: without angina Qualified Code(s): I25.10 - Atherosclerotic heart disease of [place] coronary artery without angina pectoris - Subjective Interval history: Underwent left hip surgery yesterday. Denies chest pain or shortness of breath. Reports left hip pain, controlled with pain medications. Able to participate in physical therapy. - Constitutional Vitals: Temp Pulse Resp BP Pulse Ox 99.8 F H 64 16 139/67 95 04/16/17 16:34 04/16/17 16:34 04/16/17 16:34 04/16/17 16:34 04/16/17 16:34 General appearance: Present: A&O X 3, answers questions appropriately - Respiratory Respiratory exam: Present: CTAB, rales (Faint bibasal). Absent: accessory muscle use, rhonchi, wheezes - Cardiovascular Cardiovascular exam: Present: RRR, +S1, +S2. Absent: diastolic murmur, gallop, rubs, systolic murmur - GI/Abdominal GI/Abdominal exam: Present: normal bowel sounds, soft, no peritoneal signs. Absent: distended, tenderness - Extremities Exam Extremities exam: Present: full ROM (Restricted at left hip), warm, radial pulses palpable and symmetrical. Absent: calf tenderness, cyanotic, pedal edema Internal Medicine: Result - Labs CBC & Chem 7: 04/16/17 01:19 04/16/17 01:19 Labs: Short CBC 04/16/17 Range/Units 01:19 WBC 7.0 (4.3-11.1) K/mcL Hgb 8.8 L (11.5-15.4) g/dL Hct 27.4 L (35.3-44.9) % Plt Count 141 (140-400) K/mcL Neutrophils # 5.5 (1.6-8.9) K/mcL BMP 04/16/17 01:19 Sodium 137 Potassium 4.3 Chloride 106 Carbon Dioxide 23 BUN 30 H Creatinine 1.25 H Glucose 93 Calcium 7.9 L - ABG Interpretation ABG results: PT/INR, D-dimer PT 16.9 Seconds (9.4-12.1) H 04/16/17 01:19 - VTE Documentation of Mechanical Device: Intermittent pneumatic compression device Consult Discharge Plan - Plan Additional Instructions: Discharge Instructions: Total Hip Replacement Please call [facility] ([phone]), your Primary Care Physician, or report to the Emergency Room if you have any of the following symptoms: Nausea, vomiting, fever greater that 101.5, swelling, chest pain, shortness of breath, increased pain/redness/drainage/odor for your incision site, numbness/ tingling, or any other concerning symptoms. ACTIVITY:Weight-bearing as tolerated for 8 weeks with hip dislocation precautions that physical therapy taught you. You may progress as tolerated under the guidance of your physical therapist. You do not need to sleep with a pillow between your legs. You can also seep on the operative side or on your stomach. MEDICATIONS: Upon discharge resume your home medications. Take all the medications as prescribed. Take a stool softener if taking narcotic pain medications. Stool softeners are only effective if you drink enough fluids. Drink 6-8 glass of water or fluids a day, unless this is not allowed for another health problem. Despite using stool softeners, if you haven't had a bowel movement in 3 days, please switch to a gentle laxative. Gentle laxatives are sold over the counter. You should have a bowel movement within 24 hours, if not call the office. You will be discharged from the hospital with a prescription for pain medication. You are encouraged to decrease the use of narcotic pain medication as tolerated. Should you require a refill, please call the office. [facility] prescribes narcotic pain medication for only 4-6 weeks after surgery. If you require pain medication beyond this time period, you may be referred to your Primary Care Physician or to the Pain Clinic for further evaluation. Plan ahead for refills on pain medication as many narcotics either need to be picked up at the office or mailed. It is best to call 48-72 hours in advance of needing a prescription refill so you don't run out of medication. To help control the post-operative pain, you may take NSAIDs (Aleve,Advil, Motrin, ibuprofen, naprosyn) or Tylenol as prescribed on the bottle in addition to the pain medication. ANTICOAGULATION (blood thinners): Continue your Aspirin, Lovenox or Coumadin as prescribed to help prevent a blood clot in the leg or in the lungs. As long as your incision remains dry and you tolerate the NSAIDs (Aleve, Advil, Motrin, Ibuprofen, Naprosyn), it is OK to use the NSAIDS while you are taking your anticoagulation medication. Should your incision start to drain, stop the NSAID and contact our office. Common symptoms of blood clot in the legs include: localized pain, swelling, calf tenderness, redness or discoloration of the skin. Blood clot in the lung symptoms include: shortness of breath, rapid pulse, sweating, and chest pain that worsens with deep breathing, coughing up blood, lightheadedness, feelings of anxiety. If you experience any of these symptoms notify your physician immediately, go to the emergency room, or if having trouble breathing, call 911. WOUND CARE: Leave the dressing on for 7 to 10days. You may change the dressing if it is saturated greater than 50%. Do not get the dressing wet at anytime. Wash your hands with antibacterial soap, rinse and dry prior to any wound care. If you have roger the visiting nurse or rehab facility can remove the stapes 10-14 days after surgery [address] steri-strips across the wound. Leave the steri-strips in place until they fall off on their own. You may let water from the shower run on top of the steri-strips. If you do not have a visiting nurse or rehab facility, you will need to return to the office at 10-14 days for the roger to be removed. If you have itching or redness around the dressing call the office. FOLLOW-UP: Please follow up with your surgeon in the orthopedic clinic in 6 weeks from the day of surgery. If you have roger that need to be removed, you will need to come back to the office in 10-14 days from the day of surgery. Referrals: Merlene Juan PAC [Physician Checker In] - 04/29/17 11:30 am Lala Hernandez MD [Primary Care Provider] - Otoniel Gutiérrez MD [Partnered Physician] - 05/27/17 11:00 am Prescriptions: HYDROcodone/Acet 5/325 mg [[place] 5-325 mg] 1 tab PO Q4HR PRN #15 tablet PRN Reason: Pain
--- NOTE | 2017-04-16 17:05 | Discharge Summary ---
Date of Encounter: 04/16/17 Time of Encounter: 17:00 - Discharge Diagnosis (1) Intertrochanteric fracture of left hip Priority: Primary Status: Acute Qualifiers: Encounter type: subsequent encounter Fracture type: closed Fracture alignment: displaced Fracture healing: with routine healing Qualified Code(s ): S72.142D - Displaced intertrochanteric fracture of left femur, subsequent encounter for closed fracture with routine healing (2) Combined systolic and diastolic heart failure Priority: Primary Status: Acute Qualifiers: Heart failure chronicity: acute on chronic Qualified Code(s): I50.43 - Acute on chronic combined systolic (congestive) and diastolic (congestive) heart failure (3) Hypomagnesemia Priority: Primary Status: Resolved (4) ICD (implantable cardioverter-defibrillator) in place Priority: Secondary Status: Chronic (5) CKD (chronic kidney disease) Priority: Secondary Status: Chronic Qualifiers: Chronic kidney disease stage: stage 3 (moderate) Qualified Code(s): N18.3 - Chronic kidney disease, stage 3 (moderate) (6) Type 2 diabetes mellitus Priority: Secondary Status: Chronic Qualifiers: Diabetes mellitus complication status: with kidney complications Diabetes mellitus complication detail: with chronic kidney disease Diabetes mellitus jail insulin use: without ad terminal makeup operator use Chronic kidney disease stage: stage 3 (moderate) Qualified Code(s): E11.22 - Type 2 diabetes mellitus with diabetic chronic kidney disease; N18.3 - Chronic kidney disease, stage 3 ( moderate) (7) Atrial fibrillation Priority: Secondary Status: Chronic Qualifiers: Atrial fibrillation type: chronic Qualified Code(s): I48.2 - Chronic atrial fibrillation (8) Coronary artery disease Priority: Secondary Status: Chronic Qualifiers: Coronary Disease-Associated Artery/Lesion type: [place] artery [place] vs. transplanted heart: [place] heart Associated angina: without angina Qualified Code(s): I25.10 - Atherosclerotic heart disease of [place] coronary artery without angina pectoris - Discharge Medications Prescriptions: HYDROcodone/Acet 5/325 mg [[place] 5-325 mg] 1 tab PO Q4HR PRN #15 tablet PRN Reason: Pain Home Medications: Allopurinol [Zyloprim 100 MG] 100 mg PO BID 02/03/17 [History] Amiodarone [Cordarone] 400 mg PO QAM 02/03/17 [History] Biotin 1 mg PO DAILY 02/03/17 [History] Calcitriol [Rocaltrol] 0.25 mcg PO DAILY 02/03/17 [History] Cholecalciferol (D-3) [Vitamin D] 1,000 unit PO DAILY 02/03/17 [History] Cyanocobalamin (Vitamin B-12) [Vitamin B-12] 250 mcg PO DAILY 02/03/17 [History] Enalapril Maleate [Vasotec] 20 mg PO BID 02/03/17 [History] Metoprolol [Lopressor] 25 mg PO BID 02/03/17 [History] Omeprazole [PriLOSEC] 20 mg PO BID 02/03/17 [History] Potassium Chloride [Klor-Con 10] 10 meq PO DAILY 02/03/17 [History] Warfarin [Coumadin] 2 mg PO [place] 02/03/17 [History] cephALEXin [Keflex] 500 mg PO BID 04/12/17 [History] Furosemide [Lasix] 40 mg PO BID #30 04/16/17 [Rx] HYDROcodone/Acet 5/325 mg [[place] 5-325 mg] 1 tab PO Q4HR PRN #15 tablet [Rx] Warfarin [Coumadin] 1 mg PO DAILY 04/16/17 [History] Warfarin [Coumadin] 2 mg PO WE 04/16/17 [History] Allergies/Adverse Reactions: 3 Allergy/AdvReac Type Severity Reaction Status Date / Time Sulfa (Sulfonamide Allergy See Verified 04/12/17 11:42 Antibiotics) Comments Date of admission: 04/12/17 09:26 Primary care physician: Lala Hernandez MD Consults: 04/12/17 15:39 Consult to Cardiology [CONS] Routine Comment: Consulting Provider: [facility] Reason for Consult: preop clearance Time Notified: 15:40 Call Completed: Yes 04/14/17 16:31 Consult to Occupational Therapy [CONS] Routine Comment: Evaluate, develop and implement POC Reason for Consult: post hip surgery Consult to Orthopedic Navigator [CONS] [CONS] Routine Consult to Physical Therapy [CONS] Routine Comment: Evaluate, develop and implement POC Reason for Consult: post hip surgery Consult to Entry Level Programmer [CONS] Routine Reason for SW Consult: post -op hip fracture RT Post Op Consult [CONS] Routine Discharging clinician: Breanna Figueroa Anticipated date of discharge: 09/21/17 - Patient Status Disposition: Transfer Inpatient Rehab Fac Condition: Fair Functional capacity at discharge: uses cane/walker Overall status at discharge: patient is progressing back to baseline - Discharge Instructions Follow Up With: Merlene Juan PAC [Physician Lead Database Administrator] - 04/29/17 11:30 am Lala Hernandez MD [Primary Care Provider] - Otoniel Gutiérrez MD [Partnered Physician] - 05/27/17 11:00 am Additional Instructions: Discharge Instructions: Total Hip Replacement Please call [facility] ([phone]), your Primary Care Physician, or report to the Emergency Room if you have any of the following symptoms: Nausea, vomiting, fever greater that 101.5, swelling, chest pain, shortness of breath, increased pain/redness/drainage/odor for your incision site, numbness/ tingling, or any other concerning symptoms. ACTIVITY:Weight-bearing as tolerated for 8 weeks with hip dislocation precautions that physical therapy taught you. You may progress as tolerated under the guidance of your physical therapist. You do not need to sleep with a pillow between your legs. You can also seep on the operative side or on your stomach. MEDICATIONS: Upon discharge resume your home medications. Take all the medications as prescribed. Take a stool softener if taking narcotic pain medications. Stool softeners are only effective if you drink enough fluids. Drink 6-8 glass of water or fluids a day, unless this is not allowed for another health problem. Despite using stool softeners, if you haven't had a bowel movement in 3 days, please switch to a gentle laxative. Gentle laxatives are sold over the counter. You should have a bowel movement within 24 hours, if not call the office. You will be discharged from the hospital with a prescription for pain medication. You are encouraged to decrease the use of narcotic pain medication as tolerated. Should you require a refill, please call the office. [facility] prescribes narcotic pain medication for only 4-6 weeks after surgery. If you require pain medication beyond this time period, you may be referred to your Primary Care Physician or to the Pain Clinic for further evaluation. Plan ahead for refills on pain medication as many narcotics either need to be picked up at the office or mailed. It is best to call 48-72 hours in advance of needing a prescription refill so you don't run out of medication. To help control the post-operative pain, you may take NSAIDs (Aleve,Advil, Motrin, ibuprofen, naprosyn) or Tylenol as prescribed on the bottle in addition to the pain medication. ANTICOAGULATION (blood thinners): Continue your Aspirin, Lovenox or Coumadin as prescribed to help prevent a blood clot in the leg or in the lungs. As long as your incision remains dry and you tolerate the NSAIDs (Aleve, Advil, Motrin, Ibuprofen, Naprosyn), it is OK to use the NSAIDS while you are taking your anticoagulation medication. Should your incision start to drain, stop the NSAID and contact our office. Common symptoms of blood clot in the legs include: localized pain, swelling, calf tenderness, redness or discoloration of the skin. Blood clot in the lung symptoms include: shortness of breath, rapid pulse, sweating, and chest pain that worsens with deep breathing, coughing up blood, lightheadedness, feelings of anxiety. If you experience any of these symptoms notify your physician immediately, go to the emergency room, or if having trouble breathing, call 911. WOUND CARE: Leave the dressing on for 7 to 10days. You may change the dressing if it is saturated greater than 50%. Do not get the dressing wet at anytime. Wash your hands with antibacterial soap, rinse and dry prior to any wound care. If you have roger the visiting nurse or rehab facility can remove the stapes 10-14 days [address] surgery [address] steri-strips across the wound. Leave the steri-strips in place until they fall off on their own. You may let water from the shower run on top of the steri-strips. If you do not have a visiting nurse or rehab facility, you will need to return to the office at 10-14 days for the roger to be removed. If you have itching or redness around the dressing call the office. FOLLOW-UP: Please follow up with your surgeon in the orthopedic clinic in 6 weeks from the day of surgery. If you have roger that need to be removed, you will need to come back to the office in 10-14 days from the day of surgery. - Diet and Activity Activity: as per physical therapy, wear oxygen at all times Diet: diabetic diet, low fat, low cholesterol, low salt diet (fluid restriction to 1.5L/day), other (renal diet) Hospital course: Ms. Rodríguez is a 71 year old female with multiple medical problems, who was admitted with left hip pain status post mechanical fall. She was noted to have left femoral intertrochanteric fracture. She was also noted to be in acute on chronic CHF at the time of admission and was started on IV diuresis with fluid restriction and strict urine output monitoring. Her symptoms improved significantly and she was cleared by cardiology with intermediate perioperative risk and subsequently underwent left hip intramedullary nail fixation and had an uneventful postoperative recovery. Her hemoglobin was noted to have dropped slightly after surgery, but this is consistent with her baseline. Her diuretics are being switched to oral Lasix at this time. She does have mild elevation in serum creatinine and BUN due to the use of IV Lasix but she does have history of chronic kidney disease and this is consistent with her previous values. Patient was evaluated by physical and occupational therapy, recommended placement in inpatient rehabilitation, to which patient and family are agreeable. Patient is currently medically stable for this transfer. - Time Spent with Patient Total time spent providing and/or coordinating discharge services: Greater than 30 minutes (45 min) - Constitutional Vitals: Temp Pulse Resp BP Pulse Ox 99.8 F H 64 16 139/67 95 04/16/17 16:34 04/16/17 16:34 04/16/17 16:34 04/16/17 16:34 04/16/17 16:34 General appearance: Present: A&O X 3, answers questions appropriately - Respiratory Respiratory exam: Present: CTAB. Absent: accessory muscle use, rales, rhonchi, wheezes - Cardiovascular Cardiovascular exam: Present: irregular rhythm, +S1, +S2. Absent: diastolic murmur, gallop, rubs, systolic murmur - VTE Documentation of Mechanical Device: Intermittent pneumatic compression device
--- NOTE | 2017-04-16 17:07 | Physician Discharge Referral ---
ExtendedCare Referral Info Transfer To: [facility] rehab Provider in Charge: Breanna Figueroa Provider in Charge after Transfer: PCP Institutional Level of Care: Intermediate - Diagnosis (1) Intertrochanteric fracture of left hip Priority: Primary Status: Acute (2) Combined systolic and diastolic heart failure Priority: Primary Status: Acute (3) Hypomagnesemia Priority: Primary Status: Resolved (4) ICD (implantable cardioverter-defibrillator) in place Priority: Secondary Status: Chronic (5) CKD (chronic kidney disease) Priority: Secondary Status: Chronic (6) Type 2 diabetes mellitus Priority: Secondary Status: Chronic (7) Atrial fibrillation Priority: Secondary Status: Chronic (8) Coronary artery disease Priority: Secondary Status: Chronic Expected Duration of Placement: 3 weeks Prognosis: Fair Aware of Diagnosis: Patient Aware of Prognosis: Patient - Transfer Medications Prescriptions: HYDROcodone/Acet 5/325 mg [[place] 5-325 mg] 1 tab PO Q4HR PRN #15 tablet PRN Reason: Pain Home Medications: Allopurinol [Zyloprim 100 MG] 100 mg PO BID 02/03/17 [History] Amiodarone [Cordarone] 400 mg PO QAM 02/03/17 [History] Biotin 1 mg PO DAILY 02/03/17 [History] Calcitriol [Rocaltrol] 0.25 mcg PO DAILY 02/03/17 [History] Cholecalciferol (D-3) [Vitamin D] 1,000 unit PO DAILY 02/03/17 [History] Cyanocobalamin (Vitamin B-12) [Vitamin B-12] 250 mcg PO DAILY 02/03/17 [History] Enalapril Maleate [Vasotec] 20 mg PO BID 02/03/17 [History] Metoprolol [Lopressor] 25 mg PO BID 02/03/17 [History] Omeprazole [PriLOSEC] 20 mg PO BID 02/03/17 [History] Potassium Chloride [Klor-Con 10] 10 meq PO DAILY 02/03/17 [History] Warfarin [Coumadin] 2 mg PO Q48H 02/03/17 [History] cephALEXin [Keflex] 500 mg PO BID 04/12/17 [History] Furosemide [Lasix] 40 mg PO BID #30 04/16/17 [Rx] HYDROcodone/Acet 5/325 mg [[place] 5-325 mg] 1 tab PO Q4HR PRN #15 tablet [Rx] Allergies/Adverse Reactions: 3 Allergy/AdvReac Type Severity Reaction Status Date / Time Sulfa (Sulfonamide Allergy See Verified 04/12/17 11:42 Antibiotics) Comments - Respiratory Orders Oxygen / L per min (3L/min viA nc) Smoking Cessation: Smoking cessation has been advised. For more information, call the [employer] Quit Line at 4-128-CHHZ-NOW. - Advance Directives Code Status: DNR-Arrest/Don't Intubate - Mobility Orders Ambulate - Rehabiliation Orders Rehab Potential: Fair Rehab Orders: ROM Exercises, Evaluation for Physical Therapy, Evaluation for Occupational Therapy - Diet Orders No Added Salt (ARABELLA), No Concentrated Sweets (diabetic), Renal, Cardiac CERTIFICATION: I certify that the transfer of the above named patient to an Extended Care Facility is necessary for the continuing treatment of the diagnosis listed. The above information is true and accurate reflection of patient's current condition. Confidential - Redisclosure prohibited without a patient's written consent.
[2017-04-16] MEDS ORDERED: *HR* Warfarin 2 MG TABLET PO ONE (18:00)
== END 2017-04-16 19:40 | DRG 480 ==
LOC: 3NENU 09:26 → SUATTDRO 09:26
PROVIDERS: ADMIT Internal Medicine; ATTEND Internal Medicine